=== PATIENT | male | born 1930 | race Caucasian/White ===

== ENCOUNTER → 2016-07-20 | Outpatient (CLI) | payer BC ==
[~2016-07-20] MED LIST: BTP80 PO; CHOL200027 PO; CLB/200 PO; CRS/10 PO; ERGO500037 PO; METO-217 PO; METO25TA3 PO; MULT-506 PO; PANT1TAB48 PO; PANT40TA PO; ROSU5TAB PO; SULF800T23 PO; TAMS0.4C38 PO; TPRSR25 PO; WARF3TAB6 PO; WARF7.5T4 PO
[2016-07-20 08:17] LABS: HEMATOCRIT 41.7 % (42-52); MEAN CELL VOLUME 87.8 fL (80-100); MEAN CORPUSCULAR HEMOGLOBIN 29.3 pg (25-34); MEAN CORPUSCULAR HGB CONC 33.3 g/dl (32-36); MEAN PLATELET VOLUME 11.1 fL (7.4-10.4); PLATELET COUNT 133 K/uL (130-400); RED BLOOD COUNT 4.75 M/uL (4.7-6.1); WHITE BLOOD COUNT 6.43 K/uL (4.8-10.8)
[2016-07-20 08:31] LABS: BLOOD UREA NITROGEN 15 mg/dl (7-18); BUN/CREATININE RATIO 11.5 (10-20); CARBON DIOXIDE 25 mmol/L (21-32); CHLORIDE 116 mmol/L (98-107); GLUCOSE 102 mg/dl (70-99); PHOSPHORUS 2.7 mg/dl (2.5-4.9); POTASSIUM 4.5 mmol/L (3.5-5.1); SODIUM 146 mmol/L (136-145)
[2016-07-20 08:49] LABS: CALCIUM 8.7 mg/dl (8.5-10.1)
== END ==
LOC: C.LABFOXMH 07:55
PROVIDERS: ATTEND Internal Medicine
DX: N18.3 Chronic kidney disease, stage 3 (moderate) (principal)

== ENCOUNTER 2016-10-24 10:45 | Emergency (ER) | payer BC ==
[~2016-10-24] VITALS: Ht 182.9 cm; Wt 103.0 kg
[~2016-10-24 10:45] MED LIST changes: -BTP80 PO; -CHOL200027 PO; -CLB/200 PO; -ERGO500037 PO; -METO25TA3 PO; -MULT-506 PO; -PANT1TAB48 PO; -ROSU5TAB PO; -TAMS0.4C38 PO; -TPRSR25 PO; -WARF7.5T4 PO
[2016-10-24 10:55] VITALS: TEMP 36.7; Ht 182.9 cm; Wt 103.0 kg
[2016-10-24] MEDS ORDERED: ERGO500037 PO (11:03)
[2016-10-24] MEDS ORDERED: CLB/200 PO (11:03)
[2016-10-24] MEDS ORDERED: ROSU5TAB PO (11:03)
[2016-10-24] MEDS ORDERED: TAMS0.4C38 PO (11:03)
[2016-10-24] MEDS ORDERED: METO25TA3 PO (11:03)
[2016-10-24] MEDS ORDERED: WARF7.5T4 PO (11:03)
[2016-10-24] MEDS ORDERED: CHOL200027 PO (11:03)
[2016-10-24] MEDS ORDERED: PANT1TAB48 PO (11:03)
[2016-10-24 11:06] VITALS: O2SAT 94
[2016-10-24 11:33] LABS: BASO % 0.4 %; BASO ABS # 0.03 K/uL (0-0.2); COMPLETE YES; EOS % 1.2 %; HEMATOCRIT 45.1 % (42-52); IG% 0.1 %; LYMPH ABS # 1.27 K/uL (1.2-3.4); MEAN CORPUSCULAR HGB CONC 33.7 g/dl (32-36); MEAN PLATELET VOLUME 11.7 fL (7.4-10.4); MONO % 8.2 %; NEUT % 71.1 %; PLATELET COUNT 141 K/uL (130-400); RED BLOOD COUNT 5.07 M/uL (4.7-6.1); WHITE BLOOD COUNT 6.69 K/uL (4.8-10.8)
--- NOTE | 2016-10-24 11:37 | DIAGNOSTIC IMAGING REPORT ---
CHEST ONE VIEW PORTABLE HISTORY: 85 years Male acute Fever/Sepsis COMPARISON: None available. TECHNIQUE: Portable upright AP view of the chest FINDINGS: Cardiac silhouette is mildly enlarged. There is no pneumothorax, pleural effusion, focal airspace consolidation or overt pulmonary edema. There is mild convex right curvature of the midthoracic spine. The bones are grossly intact. IMPRESSION: No acute cardiopulmonary process. The above report was generated using voice recognition software. It may contain grammatical, syntax or spelling errors. Electronically signed by: Roland Humphrey M.D. 10/24/2016 11:36 AM Dictated Date/Time: 10/24/2016 11:35 AM
[2016-10-24 11:50] LABS: PARTIAL THROMBOPLASTIN RATIO 1.4; PROTHROMBIN TIME (PATIENT) 22.2 SECONDS (9.0-12.0)
[2016-10-24 11:52] LABS: ALT/SGPT 22 U/L (12-78); BLOOD UREA NITROGEN 20 mg/dl (7-18); CALCIUM 9.1 mg/dl (8.5-10.1); CARBON DIOXIDE 25 mmol/L (21-32); CHLORIDE 113 mmol/L (98-107); GLUCOSE 149 mg/dl (70-99); POTASSIUM 4.3 mmol/L (3.5-5.1); SODIUM 144 mmol/L (136-145)
[2016-10-24 12:02] LABS: ALKALINE PHOSPHATASE 57 U/L (45-117); AST/SGOT 17 U/L (15-37); CKMB/CK RATIO 2.1 (0-3.0)
--- NOTE | 2016-10-24 12:11 | EMERGENCY ROOM VISIT NOTE ---
History Report prepared by Iqra: Jaron Tariq Under the Supervision of: Dr. Ziggy García D.O. First contact with patient: 11:07 Chief Complaint: IRREGULAR HEARTBEAT Stated Complaint: TACHYCARDIA Nursing Triage Summary: Pt brought in via ambulance ALS from [facility]. Pt was attending a seminar this morning and felt his heart racing. Pt has a history of AFib. Pt stated that he felt SOB, pain radiating to left neck and down his left arm to his left wrist. Pt went to [facility] nurse. An EKG was obtained showing the pt in AFib with a rate in the 120's. When EMS arrived and placed a monitor on the pt their 12 lead showed the same. Pt reports that he is usually able to break his AFib with a vagal manuver. Pts heart rate is now down into the 70's. His pain has subsided and he is no longer SOB. History of Present Illness The patient is a 85 year old male who presents to the Emergency Room with complaints of resolved heart palpitations beginning 2 hours ago. He is a resident at [facility]. He began experiencing his symptoms after breakfast this morning during a seminar. The patient has a history of atrial fibrillation and is on Coumadin as well as Metoprolol. He states that his symptoms resolved shortly after arriving to the ED. He states that he can usually convert his irregular heart rhythm to a normal rhythm after a few minutes. The patient also complains of upper left chest "discomfort" with his palpitations. He notes that he was doing some physical labor yesterday. He states that he has been experiencing similar episodes of palpitations more recently than usual in the past week. The patient notes that he recently began taking vitamin D pills. Source of History: patient Onset: 2 hours ago Symptom Intensity: currently none Quality: other (heart palpitations) Timing: resolved Note: The patient also complains of upper left chest "discomfort" with his palpitations. Review of Systems See HPI for pertinent positives & negatives. A total of 10 systems reviewed and were otherwise negative. Past Medical & Surgical Medical Problems: (1) Atrial fibrillation Family History No pertinent family history stated. Social History Smoking Status: Former Smoker Marital Status: Occupation Status: retired Current/Historical Medications Scheduled Celecoxib (CeleBREX), 200 MG PO DAILY Cholecalciferol (Vitamin D-3), 2,000 UNITS PO DAILY Ergocalciferol (Vitamin D 12705 Unit), 50,000 UNIT PO WK Metoprolol Succinate (Toprol Xl), 12.5 MG PO DAILY Pantoprazole (Protonix), 40 MG PO DAILY Rosuvastatin Calcium (Crestor), 5 MG PO DAILY Tamsulosin Hcl (Flomax), 0.4 MG PO DAILY Warfarin Sod (Jantoven), 7.5 MG PO DAILY Allergies Coded Allergies: Penicillins (Verified Allergy, Unknown, 03/26/14) Levofloxacin (Verified Adverse Reaction, Intermediate, Tachycardia, ) Physical Exam Vital Signs Date Time Temp Pulse Resp B/P (MAP) Pulse Ox O2 Delivery O2 Flow Rate FiO2 10/24/16 11:06 94 Room Air 10/24/16 10:58 70 10/24/16 10:58 94 Room Air 10/24/16 10:55 36.7 66 20 143/88 94 Room Air Physical Exam CONSTITUTIONAL/VITAL SIGNS: Reviewed / noted above. GENERAL: Non-toxic in appearance. INTEGUMENTARY: Warm, dry, and Herman. HEAD: Normocephalic. EYES: without scleral icterus or trauma. ENT/OROPHARYNX: clear and moist. LYMPHADENOPATHY/NECK: Is supple without lymphadenopathy or meningismus. RESPIRATORY: Lungs clear and equal. CARDIOVASCULAR: Regular rate and rhythm. GI/ABDOMEN: Soft and nontender. No organomegaly or pulsatile mass. No rebound or guarding. Normal bowel sounds. EXTREMITIES: Warm and well perfused. BACK: No CVA tenderness. NEUROLOGICAL: Intact without focal deficits. PSYCHIATRIC: normal affect. MUSCULOSKELETAL: Normally developed with good muscle tone. Medical Decision & Procedures ER Provider Diagnostic Interpretation: X ray results and stated below per my interpretation and radiology interpretation. CHEST ONE VIEW PORTABLE FINDINGS: Cardiac silhouette is mildly enlarged. There is no pneumothorax, pleural effusion, focal airspace consolidation or overt pulmonary edema. There is mild convex right curvature of the midthoracic spine. The bones are grossly intact. IMPRESSION: No acute cardiopulmonary process. The above report was generated using voice recognition software. It may contain grammatical, syntax or spelling errors. Electronically signed by: Roland Humphrey M.D. Laboratory Results 10/24/16 10:55 Red Blood Count 5.07, Mean Corpuscular Volume 89.0, Mean Corpuscular Hemoglobin 30.0, Mean Corpuscular Hemoglobin Concent 33.7, Mean Platelet Volume 11.7, Neutrophils (%) (Auto) 71.1, Lymphocytes (%) (Auto) 19.0, Monocytes (%) (Auto) 8.2, Eosinophils (%) (Auto) 1.2, Basophils (%) (Auto) 0.4, Neutrophils # (Auto) 4.75, Lymphocytes # (Auto) 1.27, Monocytes # (Auto) 0.55, Eosinophils # (Auto) 0.08, Basophils # (Auto) 0.03 10/24/16 10:55 Test 10/24/16 10:55 White Blood Count 6.69 K/uL (4.8-10.8) Red Blood Count 5.07 M/uL (4.7-6.1) Hemoglobin 15.2 g/dL (14.0-18.0) Hematocrit 45.1 % (42-52) Mean Corpuscular Volume 89.0 fL (80-100) Mean Corpuscular Hemoglobin 30.0 pg (25-34) Mean Corpuscular Hemoglobin Concent 33.7 g/dl (32-36) Platelet Count 141 K/uL (130-400) Mean Platelet Volume 11.7 fL (7.4-10.4) Neutrophils (%) (Auto) 71.1 % Lymphocytes (%) (Auto) 19.0 % Monocytes (%) (Auto) 8.2 % Eosinophils (%) (Auto) 1.2 % Basophils (%) (Auto) 0.4 % Neutrophils # (Auto) 4.75 K/uL (1.4-6.5) Lymphocytes # (Auto) 1.27 K/uL (1.2-3.4) Monocytes # (Auto) 0.55 K/uL (0.11-0.59) Eosinophils # (Auto) 0.08 K/uL (0-0.5) Basophils # (Auto) 0.03 K/uL (0-0.2) RDW Standard Deviation 44.3 fL (36.4-46.3) RDW Coefficient of Variation 13.7 % (11.5-14.5) Immature Granulocyte % (Auto) 0.1 % Immature Granulocyte # (Auto) 0.01 K/uL (0.00-0.02) Prothrombin Time 22.2 SECONDS (9.0-12.0) Prothromb Time International Ratio 2.0 (0.9-1.1) Activated Partial Thromboplast Time 37.2 SECONDS (21.0-31.0) Partial Thromboplastin Ratio 1.4 Anion Gap 6.0 mmol/L (3-11) Est Creatinine Clear Calc Drug Dose 44.7 ml/min Estimated GFR () 48.5 Estimated GFR (Non- 41.9 BUN/Creatinine Ratio 13.0 (10-20) Calcium Level 9.1 mg/dl (8.5-10.1) Total Bilirubin 0.5 mg/dl (0.2-1) Direct Bilirubin 0.1 mg/dl (0-0.2) Aspartate Amino Transf (AST/SGOT) 17 U/L (15-37) Alanine Aminotransferase (ALT/SGPT) 22 U/L (12-78) Alkaline Phosphatase 57 U/L (45-117) Total Creatine Kinase 85 U/L (39-308) Creatine Kinase MB 1.8 ng/ml (0.5-3.6) Creatine Kinase MB Ratio 2.1 (0-3.0) Troponin I < 0.015 ng/ml (0-0.045) Total Protein 7.0 gm/dl (6.4-8.2) Albumin 3.6 gm/dl (3.4-5.0) Thyroid Stimulating Hormone (TSH) 2.800 uIu/ml (0.300-4.500) Laboratory results as stated above per my review. ECG Indication: palpitations Rate (beats per minute): 68 Rhythm: sinus rhythm Findings: 1st degree AV block, no acute ischemic change, no ectopy ED Course 1114: Previous medical records were reviewed. The patient was evaluated in room C3. A complete history and physical examination was performed. 1206: On reevaluation, the patient is resting comfortably. I discussed the results and findings with the patient. He verbalized agreement of the treatment plan. He was discharged home. Medical Decision Differential diagnosis: Etiologies such as premature contractions, electrolyte abnormality, cardiac dysrhythmia, thyroid dysfunction, pulmonary embolism, infection, gastrointestinal, as well as others were entertained. This is an 85-year-old male who presents to the ED with a chief complaint of prolonged paroxysmal A. fib. The patient states that he does have a history of paroxysmal A. fib. He states that usually he is able to get himself out of it with a vagal-type maneuver and less than 10 minutes. Today's episode lasted for about an hour and a half. He went to [facility] nurse who did an EKG that revealed atrial fibrillation at a heart rate of 120. The patient's only symptoms was an unusual feeling in the left upper chest. By the time the patient arrives here, his symptoms have resolved. His EKG shows a normal sinus rhythm at a rate of 70. He has a first-degree AV block. A chest x-ray did not show acute disease. CBC and metabolic panel was unremarkable. Troponin is negative. INR is 2. The patient was told results. He is felt to be stable for discharge. Medication Reconcilliation Current Medication List: was personally reviewed by me Blood Pressure Screening Patient's blood pressure: Elevated blood pressure Blood pressure disposition: Referred to PCP Impression Primary Impression: Paroxysmal atrial fibrillation with rapid ventricular response Scribe Attestation The scribe's documentation has been prepared under my direction and personally reviewed by me in its entirety. I confirm that the note above accurately reflects all work, treatment, procedures, and medical decision making performed by me. Departure Information Dispostion Home / Self-Care Referrals Evin Melton (PCP) Patient Instructions My [facility] Additional Instructions Follow-up with your doctor for further care and evaluation in 1-2 days. Return to the emergency department for worsening or new symptoms or any concerns. You have been examined and treated today on an emergency basis only. This is not a substitute for, or an effort to provide, complete comprehensive medical care. It is impossible to recognize and treat all injuries or illnesses in a single emergency department visit. It is therefore important that you follow up closely with your doctor. Call as soon as possible for an appointment.
[2016-10-24 12:50] VITALS: BP 116/76; PULSE 55; O2SAT 94
[2016-11-14] MEDS ORDERED: BTP80 PO (14:03)
== END 2016-10-24 13:12 | disposition home or self-care (01) ==
LOC: EDBD 10:45 → C.EDC 10:46
DX: I48.0 Paroxysmal atrial fibrillation (principal); Z79.01 Long term (current) use of anticoagulants; Z87.891 Personal history of nicotine dependence; Z79.899 Other long term (current) drug therapy

== ENCOUNTER 2016-11-01 20:13 | Emergency (ER) | payer BC ==
[~2016-11-01] VITALS: Ht 188 cm; Wt 105.2 kg
[~2016-11-01 20:13] MED LIST changes: +CHOL200027 PO; +CLB/200 PO; -CRS/10 PO; +ERGO500037 PO; -METO-217 PO; +METO25TA3 PO; +PANT1TAB48 PO; -PANT40TA PO; +ROSU5TAB PO; -SULF800T23 PO; +TAMS0.4C38 PO; -WARF3TAB6 PO; +WARF7.5T4 PO
[2016-11-01 20:22] VITALS: TEMP 36.4; Ht 188 cm; Wt 105.2 kg
[2016-11-01 20:44] VITALS: O2SAT 96
[2016-11-01] MEDS ORDERED: DILTIAZEM BOLUS / DRIP IV STA (20:46)
[2016-11-01] MEDS ORDERED: DILTIAZEM HCL 5 MG/ML 5 ML VIAL IV STA (20:46)
[2016-11-01 20:48] LABS: BASO % 0.5 %; BASO ABS # 0.04 K/uL (0-0.2); COMPLETE YES; EOS % 1.3 %; HEMATOCRIT 47.4 % (42-52); IG% 0.1 %; LYMPH % 20.7 %; LYMPH ABS # 1.73 K/uL (1.2-3.4); MEAN CELL VOLUME 89.1 fL (80-100); MEAN CORPUSCULAR HEMOGLOBIN 30.3 pg (25-34); MEAN PLATELET VOLUME 11.2 fL (7.4-10.4); MONO % 7.3 %; NEUT % 70.1 %; PLATELET COUNT 159 K/uL (130-400); RED BLOOD COUNT 5.32 M/uL (4.7-6.1); WHITE BLOOD COUNT 8.37 K/uL (4.8-10.8)
[2016-11-01 20:58] LABS: INR 2.2 (0.9-1.1); PROTHROMBIN TIME (PATIENT) 24.2 SECONDS (9.0-12.0)
[2016-11-01] MEDS ORDERED: DILTIAZEM HCL INJ 125 MG in DEXTROSE 5% 100ML IV PRN (21:00)
[2016-11-01 21:09] LABS: BLOOD UREA NITROGEN 18 mg/dl (7-18); CALCIUM 9.1 mg/dl (8.5-10.1); CARBON DIOXIDE 25 mmol/L (21-32); CHLORIDE 109 mmol/L (98-107); GLUCOSE 139 mg/dl (70-99); POTASSIUM 4.3 mmol/L (3.5-5.1); SODIUM 143 mmol/L (136-145)
[2016-11-01] MEDS ORDERED: SODIUM CHLORIDE 0.9% 500ML 500 ML IV STA (21:09)
[2016-11-01] MEDS ORDERED: WARF7.5T4 PO (21:30)
[2016-11-01] MEDS ORDERED: MULT-506 PO (21:32)
--- NOTE | 2016-11-01 21:52 | EMERGENCY ROOM VISIT NOTE ---
History Report prepared by Iqra: Mateusz Holcomb Under the Supervision of: Dr. Ziggy Becerril M.D. First contact with patient: 20:37 Chief Complaint: CARDIAC ASSESSMENT Stated Complaint: RAPID HEART BEAT FOR 2.5HOURS History of Present Illness The patient is a 85 year old male who presents to the Emergency Room with complaints of heart palpitations starting about 3 hours ago. He describes it as a rapid heartbeat. He also complains of some mild abdominal discomfort. He has a history of similar symptoms occurring for the past 15 years with A-Fib but his symptoms have worsened over the past 6 weeks. He no longer has relief with a vasovagal maneuver. He took Metoprolol at home prior to arrival. He is on Coumadin. He denies any chest pain, shortness of breath, or any other complaints. Source of History: patient Onset: about 3 hours ago Position: chest Quality: other (heart palpitations) Timing: other (persistent) Modifying Factors (Relieving): other (vasovagal maneuver without relief) Associated Symptoms: + abdominal pain, No chest pain, No SOB Review of Systems See HPI for pertinent positives & negatives. A total of 10 systems reviewed and were otherwise negative. Past Medical & Surgical Medical Problems: (1) Atrial fibrillation Family History Patient reports no known family medical history. Social History Smoking Status: Never Smoker Marital Status: Housing Status: lives with family Occupation Status: retired Current/Historical Medications Scheduled Celecoxib (CeleBREX), 200 MG PO DAILY Cholecalciferol (Vitamin D-3), 2,000 UNITS PO DAILY Metoprolol Succinate (Toprol Xl), 12.5 MG PO DAILY Multivitamin (Multivitamin), 1 TAB PO DAILY Pantoprazole (Protonix), 40 MG PO DAILY Rosuvastatin Calcium (Crestor), 5 MG PO DAILY Tamsulosin Hcl (Flomax), 0.4 MG PO DAILY Warfarin Sod (Jantoven), 7.5 MG PO 3XWK Warfarin Sod (Jantoven), 3.75 MG PO 4XWK Allergies Coded Allergies: Penicillins (Verified Allergy, Unknown, 11/01/16) Levofloxacin (Verified Adverse Reaction, Intermediate, Tachycardia, ) Physical Exam Vital Signs Date Time Temp Pulse Resp B/P (MAP) Pulse Ox O2 Delivery O2 Flow Rate FiO2 11/01/16 23:01 49 18 95/63 95 11/01/16 22:39 46 11/01/16 22:00 55 14 99/65 96 Nasal Cannula 2.0 11/01/16 21:56 90/64 11/01/16 21:51 106/62 11/01/16 21:46 102/65 11/01/16 21:41 91/62 11/01/16 21:36 97/65 11/01/16 21:31 90/58 11/01/16 21:30 57 19 94 11/01/16 21:21 55 16 87/56 92 Room Air 11/01/16 21:16 120 20 89/68 92 Room Air 11/01/16 20:49 125 11/01/16 20:45 96 Room Air 11/01/16 20:44 96 Room Air 11/01/16 20:22 36.4 143 18 88/60 96 Room Air Physical Exam GENERAL: Patient is a healthy-appearing well-nourished HEAD: Normocephalic atraumatic EYES: Ocular movements intact pupils equal and react to light OROPHARYNX mucous membranes are moist no exudates present no erythema or edema present NECK: Supple no nuchal rigidity CHEST: Good equal expansion LUNGS: Clear and equal to auscultation CARDIAC: Normal S1 and S2 ABDOMEN: Soft nontender no guarding BACK: No CVA tenderness EXTREMITIES: No pain upon palpation normal muscle strength in all groups no clubbing cyanosis or edema NEURO: Patient is following commands and answering questions appropriately. Alert and oriented x3 Cranial Nerves 2-12 grossly intact Medical Decision & Procedures ER Provider Diagnostic Interpretation: X-ray results as stated below per interpretation by me and the radiologist: CHEST ONE VIEW PORTABLE HISTORY: 85 years-old Male CHEST PAIN COMPARISON: 10/24/2016 TECHNIQUE: Portable upright AP view of the chest FINDINGS: Cardiac silhouette is again mildly enlarged with associated prominence of the pulmonary vascularity. There is atherosclerosis of the aorta. There is no pneumothorax or pleural effusion. Linear subsegmental left basilar opacity is noted suggesting atelectasis. The bones appear intact. IMPRESSION: Minimal left basilar atelectasis without acute cardiopulmonary process. The above report was generated using voice recognition software. It may contain grammatical, syntax or spelling errors. Electronically signed by: Roland Humphrey M.D. 11/01/2016 9:58 PM Dictated Date/Time: 11/01/2016 9:57 PM Laboratory Results 11/01/16 20:41 Red Blood Count 5.32, Mean Corpuscular Volume 89.1, Mean Corpuscular Hemoglobin 30.3, Mean Corpuscular Hemoglobin Concent 34.0, Mean Platelet Volume 11.2, Neutrophils (%) (Auto) 70.1, Lymphocytes (%) (Auto) 20.7, Monocytes (%) (Auto) 7.3, Eosinophils (%) (Auto) 1.3, Basophils (%) (Auto) 0.5, Neutrophils # (Auto) 5.87, Lymphocytes # (Auto) 1.73, Monocytes # (Auto) 0.61, Eosinophils # (Auto) 0.11, Basophils # (Auto) 0.04 11/01/16 20:41 Test 11/01/16 20:41 White Blood Count 8.37 K/uL (4.8-10.8) Red Blood Count 5.32 M/uL (4.7-6.1) Hemoglobin 16.1 g/dL (14.0-18.0) Hematocrit 47.4 % (42-52) Mean Corpuscular Volume 89.1 fL (80-100) Mean Corpuscular Hemoglobin 30.3 pg (25-34) Mean Corpuscular Hemoglobin Concent 34.0 g/dl (32-36) Platelet Count 159 K/uL (130-400) Mean Platelet Volume 11.2 fL (7.4-10.4) Neutrophils (%) (Auto) 70.1 % Lymphocytes (%) (Auto) 20.7 % Monocytes (%) (Auto) 7.3 % Eosinophils (%) (Auto) 1.3 % Basophils (%) (Auto) 0.5 % Neutrophils # (Auto) 5.87 K/uL (1.4-6.5) Lymphocytes # (Auto) 1.73 K/uL (1.2-3.4) Monocytes # (Auto) 0.61 K/uL (0.11-0.59) Eosinophils # (Auto) 0.11 K/uL (0-0.5) Basophils # (Auto) 0.04 K/uL (0-0.2) RDW Standard Deviation 44.5 fL (36.4-46.3) RDW Coefficient of Variation 13.6 % (11.5-14.5) Immature Granulocyte % (Auto) 0.1 % Immature Granulocyte # (Auto) 0.01 K/uL (0.00-0.02) Prothrombin Time 24.2 SECONDS (9.0-12.0) Prothromb Time International Ratio 2.2 (0.9-1.1) Anion Gap 9.0 mmol/L (3-11) Est Creatinine Clear Calc Drug Dose 46.6 ml/min Estimated GFR () 48.5 Estimated GFR (Non- 41.9 BUN/Creatinine Ratio 11.8 (10-20) Calcium Level 9.1 mg/dl (8.5-10.1) Total Bilirubin 0.4 mg/dl (0.2-1) Direct Bilirubin 0.1 mg/dl (0-0.2) Aspartate Amino Transf (AST/SGOT) 19 U/L (15-37) Alanine Aminotransferase (ALT/SGPT) 24 U/L (12-78) Alkaline Phosphatase 59 U/L (45-117) Total Creatine Kinase 64 U/L (39-308) Creatine Kinase MB 1.4 ng/ml (0.5-3.6) Creatine Kinase MB Ratio 2.2 (0-3.0) Troponin I < 0.015 ng/ml (0-0.045) Total Protein 7.3 gm/dl (6.4-8.2) Albumin 3.8 gm/dl (3.4-5.0) Lipase 216 U/L (73-393) Labs reviewed by ED physician. Medications Administered Medications (Trade) Dose Ordered Sig/Catina Route Start Time Stop Time Status Last Admin Dose Admin Diltiazem HCl (Cardizem Inj) 25 mg NOW STAT IV 11/01/16 20:46 11/01/16 20:47 DC 11/01/16 21:12 25 MG Sodium Chloride 500 ml @ 999 mls/hr Q31M STAT IV 11/01/16 21:09 11/01/16 21:39 DC 11/01/16 21:16 999 MLS/HR ECG Indication: chest pain Rate (beats per minute): 127 Rhythm: other (accelerated junctional rhythm) Findings: no acute ischemic change, no ectopy Change: Repeat EKG showed junctional rhythm, 53 beats per minute, no ectopy, no acute ischemic changes. ED Course 2036: Past medical records reviewed. The patient was evaluated in room B11B. A complete history and physical examination was performed. 2045: Diltiazem HCl 1 ea IV, Diltiazem HCl 25 mg IV 2108: Sodium Chloride 500 ml @ 999 mls/hr IV 3: Upon reexamination the patient is resting comfortably. I discussed results and treatment plan with the patient. He verbalizes agreement and understanding. The patient is ready for discharge. Medical Decision Differential diagnosis: Etiologies such as cardiac ischemia, aortic dissection, pulmonary embolism, pneumonia, pneumothorax, musculoskeletal, infections, pericarditis, myocarditis , esophageal rupture, gastrointestinal, as well as others were entertained. This is an 85-year-old male who presents emergency department complaining of atrial fibrillation with a rapid response. The patient's Coumadin level is therapeutic. For this reason the patient was given Cardizem bolus. This resulted in conversion. The patient was ambulated in the emergency department and did not exhibit any evidence of dizziness. 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 Patient and are in agreement with the treatment plan. Medication Reconcilliation Current Medication List: was personally reviewed by me Blood Pressure Screening Patient's blood pressure: Low blood pressure Impression Primary Impression: Atrial fibrillation with rapid ventricular response Scribe Attestation The scribe's documentation has been prepared under my direction and personally reviewed by me in its entirety. I confirm that the note above accurately reflects all work, treatment, procedures, and medical decision making performed by me. Departure Information Dispostion Home / Self-Care Referrals Jeremiah Kurtz, Manjit Chu M.D. Forms IMPORTANT VISIT INFORMATION Patient Instructions Atrial Fibrillation Dc, My [facility] Additional Instructions Follow up with DR Kurtz's office You have been examined and treated today on an emergency basis only. This is not a substitute for, or an effort to provide, complete comprehensive medical care. It is impossible to recognize and treat all injuries or illnesses in a single emergency department visit. It is therefore important that you follow up closely with Dr Moscoso. Call as soon as possible for an appointment. Thank you for your time and consideration. I look forward to speaking with you again soon. Please don't hesitate to call us if you have any questions.
[2016-11-01 21:55] LABS: ALKALINE PHOSPHATASE 59 U/L (45-117); ALT/SGPT 24 U/L (12-78); AST/SGOT 19 U/L (15-37)
--- NOTE | 2016-11-01 21:59 | DIAGNOSTIC IMAGING REPORT ---
CHEST ONE VIEW PORTABLE HISTORY: 85 years-old Male CHEST PAIN COMPARISON: 10/24/2016 TECHNIQUE: Portable upright AP view of the chest FINDINGS: Cardiac silhouette is again mildly enlarged with associated prominence of the pulmonary vascularity. There is atherosclerosis of the aorta. There is no pneumothorax or pleural effusion. Linear subsegmental left basilar opacity is noted suggesting atelectasis. The bones appear intact. IMPRESSION: Minimal left basilar atelectasis without acute cardiopulmonary process. The above report was generated using voice recognition software. It may contain grammatical, syntax or spelling errors. Electronically signed by: Roland Humphrey M.D. 11/01/2016 9:58 PM Dictated Date/Time: 11/01/2016 9:57 PM
[2016-11-01 22:02] LABS: BUN/CREATININE RATIO 11.8 (10-20); CKMB/CK RATIO 2.2 (0-3.0)
[2016-11-01 23:01] VITALS: BP 95/63; PULSE 49; O2SAT 95
[2016-11-14] MEDS ORDERED: BTP80 PO (14:03)
== END 2016-11-01 23:02 | disposition home or self-care (01) ==
LOC: C.EDB 20:16
DX: I48.91 Unspecified atrial fibrillation (principal); Z79.01 Long term (current) use of anticoagulants; Z79.899 Other long term (current) drug therapy; Z88.0 Allergy status to penicillin; Z88.8 Allergy status to other drugs, medicaments and biological substances

== ENCOUNTER → 2016-11-12 | Outpatient (CLI) | payer BC ==
[~2016-11-12] MED LIST changes: +BTP80 PO; -ERGO500037 PO; +MULT-506 PO
[2016-11-12 08:52] LABS: HEMATOCRIT 43.5 % (42-52); MEAN CELL VOLUME 90.6 fL (80-100); MEAN CORPUSCULAR HEMOGLOBIN 30.6 pg (25-34); MEAN CORPUSCULAR HGB CONC 33.8 g/dl (32-36); MEAN PLATELET VOLUME 12.2 fL (7.4-10.4); PLATELET COUNT 137 K/uL (130-400); WHITE BLOOD COUNT 6.89 K/uL (4.8-10.8)
[2016-11-12 09:00] LABS: BLOOD UREA NITROGEN 22 mg/dl (7-18); BUN/CREATININE RATIO 14.7 (10-20); CALCIUM 8.6 mg/dl (8.5-10.1); CARBON DIOXIDE 28 mmol/L (21-32); CHLORIDE 111 mmol/L (98-107); GLUCOSE 110 mg/dl (70-99); POTASSIUM 4.3 mmol/L (3.5-5.1); SODIUM 145 mmol/L (136-145)
[2016-11-12 09:01] LABS: PHOSPHORUS 2.8 mg/dl (2.5-4.9)
== END ==
LOC: C.LABFOXDH 08:19
PROVIDERS: ATTEND Internal Medicine
DX: N18.3 Chronic kidney disease, stage 3 (moderate) (principal)

== ENCOUNTER 2016-11-13 08:22 | Inpatient (IN) | payer BC, OTHER ==
[~2016-11-13] VITALS: Ht 188 cm; Wt 100.9 kg
[2016-11-13] MEDS: CEFAZOLIN 2000 MG/60 ML D5W IV SCH ×2 (06:00→14:12)
[~2016-11-13 08:22] MED LIST changes: -BTP80 PO; +LACTATED RINGER'S 1000ML 1,000 ML IV SCH
[2016-11-13] MEDS ORDERED: FENTANYL CITRATE INJ 50 MCG/1 ML 2 ML VIAL ONE (09:10)
[2016-11-13] MEDS ORDERED: MIDAZOLAM HCL 5 MG/ML 1 ML VIAL ONE (09:10)
[2016-11-13] MEDS ORDERED: LIDOCAINE HCL 1% 20 ML VIAL ONE (09:11)
[2016-11-13] MEDS ORDERED: BACITRACIN 50000 UNIT VIAL ONE (09:11)
--- NOTE | 2016-11-13 09:26 | History & Physical Bridge Note ---
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
--- NOTE | 2016-11-13 09:27 | Procedure Note ---
Pre-Mod Sedation Assessment General Date of Moderate Sedation: Nov 13, 2016. Review Cardiovascular: regular rate, rhythm, no murmur Abdomen: soft Lungs: lungs clear Airway Class: II Pre-Sedation Airway Assessment Able to Visualize Vocal Cords: No Short Thick Neck: No Hx of Sleep Apnea: No Smoking Status: Never Smoker Mallampati Classification: Class II ASA Classification: Class II Procedure Planning Contraindications-for Mod Sed: None Yes Notes The planned sedation has been discussed with the patient and consent obtained. I have identified the patient, determined the appropriateness of sedation and have assessed the patient immediately prior to the procedure. All medicine(s) and interventions are by my order.
[2016-11-13 09:41] VITALS: BP 157/77; PULSE 46; TEMP 36.8; O2SAT 97; BMI 29.0
[2016-11-13 09:50] LABS: INR 1.4 (0.9-1.1); PROTHROMBIN TIME (PATIENT) 15.1 SECONDS (9.0-12.0)
[2016-11-13] MEDS ORDERED: CEFAZOLIN SOD 1000MG/55 ML D5W IV ONE (10:04)
[2016-11-13] MEDS ORDERED: KEFZOL SPECIAL PROCEDURE STOCK 1 GM ADDVIAL IV ONE (10:16)
--- NOTE | 2016-11-13 11:50 | Procedure Note ---
Post-Mod Sedation Assessment General Date of Moderate Sedation Nov 13, 2016. Vital Signs: Vital Signs Past 12 Hours Date Time Temp Pulse Resp B/P (MAP) Pulse Ox O2 Delivery O2 Flow Rate FiO2 11/13/16 11:40 80 16 135/88 (104) 96 Nasal Cannula 3 11/13/16 09:41 36.8 46 20 157/77 (103) 97 Room Air Review - Discharge Criteria Vital Signs Stable: Yes Alert/Oriented/Conversant: Yes Returned to Baseline Mental St: Yes Nausea Absent/Minimal: Yes Pain/Discomfort/Absent/Minimal: Yes Normal/Baseline Respirations: Yes Active Bleeding?: No Pt Received D/C Instructions: N/A Prescriptions Given: None Specific Proced. D/C Criteria Distal Pulses Present (Cardiac: N/A Groin site assessed-Card Cath: N/A Voided Prior To Discharge: N/A Discharged Patients Adult Escort/Transportation: N/A
--- NOTE | 2016-11-13 11:51 | [facility] Post Operative Brief Note ---
Immediate Operative Summary Operative Date Nov 13, 2016. Pre-Operative Diagnosis TBS, PAT Post-Operative Diagnosis SAME Procedure(s) Performed DUAL CHAMBER RATE RESPONSIVE PPM UNDER FLUROSCOPIC GUIDANCE WITH PERIPHERAL VENOGRAM Surgeon LESVIA MURRAY Ic Designer Custom Surgeon(s) NONE Estimated Blood Loss <20CC Findings SEE OFFICIAL REPORT Fluids (cc crystalloids) 400CC Specimens NONE Drains NONE Anesthesia 3MG VERSED Complication(s) None Disposition PCU
[2016-11-13] MEDS ORDERED: ACETAMINOPHEN/CODEINE 300/30MG TAB PO PRN (12:00)
[2016-11-13] MEDS ORDERED: ACETAMINOPHEN 325 MG TAB PO PRN (12:00)
[2016-11-13 12:15] VITALS: BP 133/88; PULSE 54; TEMP 36.4; O2SAT 95; Ht 188 cm; Wt 100.9 kg
--- NOTE | 2016-11-13 13:38 | OPERATIVE REPORT ---
DATE OF OPERATION: 11/13/2016 PREOPERATIVE DIAGNOSIS: Tachybrady syndrome, paroxysmal atrial tachycardia. POSTOPERATIVE DIAGNOSIS: Same. PROCEDURE: Dual chamber rate responsive permanent pacemaker under fluoroscopic guidance along with peripheral venogram. SURGEON: Dr. Aleisha Mcnamara. MEASUREMENT SUPERINTENDENT: None. ANESTHESIA: Monitored conscious sedation given under my supervision, administered by Stephanie Gustafson. Start time 10:31. End time 11:40. Total of 3 mg of Versed. IV CONTRAST: 15 mL. ANTIBIOTICS: 2 grams of Ancef. IV FLUIDS: 400 mL. BLOOD LOSS: Less than 20 mL. COMPLICATIONS: None. CONDITION: Stable. URINE OUTPUT: Not applicable. SPECIMENS: None. FINDINGS: See below. DRAINS: None. INDICATIONS: This is an 86-year-old gentleman who has a past medical history for tachybrady syndrome, paroxysmal atrial tachycardia, paroxysmal atrial fibrillation, on Coumadin with a CHADS-VASc score of 2 and on a low dose metoprolol, PVCs, chronic kidney disease stage III and hyperlipidemia. The patient due to his more symptomatic tachybrady syndrome was recommended dual chamber pacemaker, followed then by sotalol initiation. CONSENT: Consent was obtained prior to the patient going into the electrophysiology lab. The patient was explained the risks, benefits and alternatives to the procedure. Risks include but not limited to sudden cardiac , cardiac arrhythmia, cerebrovascular accident, myocardial infarction, injury to the blood vessels, chamber of the heart, lungs, bleeding or infection. The patient understood these risks and agreed to go ahead with the procedure as planned. Informed consent was obtained. DESCRIPTION OF THE PROCEDURE: The patient was brought into the electrophysiology lab in a fasting state. He was connected to continuous candy polisher. A timeout was performed to ensure patient's identity and procedure correctly. The patient received prophylactic antibiotics prior to incision. He was prepped and draped over the right infraclavicular space in normal surgical standard fashion. Moderate conscious sedation was given throughout the procedure for patient's comfort level under my supervision. [place] precautions were maintained throughout the procedure. 10 mL of 1% lidocaine, bupivacaine mixture were given in the right deltopectoral groove. Incision was performed in the right deltopectoral groove. Blunt dissection was performed down to identify the cephalic vein. The cephalic vein was identified and isolated using 0 silk ties. The vein was nicked and initially a J-wire was inserted; however, there was some resistance and difficulty in getting it in. I then ended up giving 5 mL of IV contrast into the cephalic vein and it looked like maybe it was no longer patent, so then I did a peripheral venogram with 10 mL of IV contrast diluted in 10 mL of saline, followed by 20 mL flush to identify the axillary vein and this showed that the cephalic vein was still patent as it backfilled pretty much back into my access site. So I went back to the cephalic vein, I did a more medial trina and inserted a Glidewire without any resistance. An 8-Kenyan sheath was inserted over the guidewire without any resistance. The dilator was removed and a second guidewire was inserted through the 8-Kenyan sheath to allow for retained venous access. The sheath was removed, flushed and dilator reinserted over it and then the 8-Kenyan sheath was inserted over the Glidewire. The Glidewire and dilator removed. The right ventricular pacing lead was then advanced into the right ventricle and positioned into the right ventricular apex under fluoroscopic guidance. There was adequate pacing and sensing thresholds and no diaphragmatic stimulation with high output pacing. The 8-Kenyan sheath was peeled away and the lead was fixated to pectoralis muscle using 0 silk suture. A second 8-Kenyan sheath was inserted over the retained guidewire without any resistance. The guidewire and dilator were removed. The right atrial lead was advanced into the right atrium and positioned into the right atrial wall under fluoroscopic guidance. There was adequate pacing and sensing thresholds and no diaphragmatic stimulation with high output pacing. Of note, patient did go into PAT during placement of the right atrial lead. He went out of it on his own as well. There was adequate impedance and sensing thresholds with the right atrial lead and no diaphragmatic stimulation with high output pacing. The 8-Kenyan sheath was peeled away and the lead was fixated to the pectoralis muscle using 0 silk suture. An additional 10 mL of 1% lidocaine, bupivacaine mixture were given in the pectoralis fascia. Using blunt dissection over the pectoralis muscle within the pectoralis fascia, a pacemaker pocket was created. The pocket was flushed with copious amounts of bacitracin saline wash and inspected for hemostasis. The new pulse generator was connected to the leads, making sure that the pins were in appropriate position, passed the set screws and the set screws were all tightened. The pulse generator was then placed in the pocket, making sure that the leads were lying flat beneath the device. A stay stitch using 0 silk suture was used to secure the device to the pectoralis muscle. Héctor stat was placed in the pocket as patient is going to go back on Coumadin. The incision was closed in a 3-layer fashion using a 2-0 Vicryl interrupted suture, followed by a 3-0 Vicryl interrupted suture, followed by a 4-0 Monocryl running stitch and Dermabond was applied. EQUIPMENTS: 1. Pulse generator is a [employer] DMRI SureScan [id number], serial #[id number]. 2. Right atrial lead Medtronic 5076-52 cm, serial #[id number]. 3. Right ventricular lead Medtronic 5076-58 cm, serial #[id number]. INTRAOPERATIVE TESTIN. Right atrial lead: P-wave is 3.9 millivolts, impedance 718 ohms, threshold 1.9 volts at 3.4 milliamps. 2. Right ventricular lead: R-wave is 4.1 millivolts, impedance 939 ohms, threshold 0.6 volts at 0.8 milliamps. FINAL MEASUREMENTS THROUGH THE DEVICE: 1. Right atrial lead: P-wave is 1.6 millivolts, impedance 418 ohms, threshold 1.5 volts at 0.4 milliseconds. 2. Right ventricular lead: R-wave is 6.3 millivolts, impedance 627 ohms, threshold 0.75 volts at 0.4 milliseconds. FINAL PARAMETERS: MVP-R 60/130. Right atrial amplitude is 3.5 volts, pulse width 0.4 milliseconds, sensitivity 0.3 millivolts. Right ventricular amplitude 3.5 volts, pulse width 0.4 milliseconds, sensitivity 0.9 millivolts. IMPRESSION: Successful implantation of a dual chamber rate responsive permanent pacemaker under fluoroscopic guidance along with peripheral venogram secondary to tachybrady syndrome. PLAN: Monitor patient on telemetry. Chest x-ray and EKG. Start sotalol 80 mg twice daily with the first dose now and daily EKGs to monitor the QTc. He can continue back on his Coumadin and other home medicines, so we will stop his metoprolol. He is not allowed to lift the right elbow over the right shoulder for 1 month and not allowed to lift more than 10 pounds with the right arm for 2 weeks. He can shower in 2 days, let water run over the incision, do not scrub it. He will follow up in our [place] office in 7-10 days for device and wound check. I attest to the content of the Intraoperative Record and any orders documented therein. Any exception s are noted below.
[2016-11-13] MEDS: SOTALOL HCL 80 MG TAB PO SCH ×2 (14:11→21:28)
[2016-11-13] MEDS ORDERED: NURSING VERBAL MED ORDER ONE (14:15)
[2016-11-13 15:10] VITALS: BP 121/79; PULSE 75; TEMP 37; O2SAT 95
[2016-11-13] MEDS ORDERED: WARFARIN SOD 7.5 MG TAB PO ONE (16:00)
[2016-11-13 19:21] VITALS: BP 130/87; PULSE 62; TEMP 36.9; O2SAT 93
[2016-11-13 23:53] VITALS: BP 120/74; PULSE 64; TEMP 37; O2SAT 96
[2016-11-14 03:26] VITALS: BP 115/66; PULSE 66; TEMP 37.2; O2SAT 94
[2016-11-14 05:59] LABS: INR 1.2 (0.9-1.1); PROTHROMBIN TIME (PATIENT) 13.4 SECONDS (9.0-12.0)
--- NOTE | 2016-11-14 06:43 | DIAGNOSTIC IMAGING REPORT ---
CHEST 2 VIEWS ROUTINE CLINICAL HISTORY: EXACT TIME ORDERED Evaluate for pneumothorax and lead placement COMPARISON STUDY: 11/01/2016 FINDINGS: Bipolar cardiac pacemaker placed. Lead in good position. Small right apical pneumothorax. Minimal atelectasis left base. Maximum pleural separation right apex is 1.1 cm IMPRESSION: Bipolar cardiac pacemaker placed. Leads in good position. Small right apical pneumothorax with an estimated pleural separation of 1.1 cm The above report was generated using voice recognition software. It may contain grammatical, syntax or spelling errors. Electronically signed by: Loyd Wiggins M.D. 11/14/2016 6:42 AM Dictated Date/Time: 11/14/2016 6:35 AM
[2016-11-14 07:06] VITALS: BP 123/78; PULSE 64; TEMP 36.9; O2SAT 93
[2016-11-14] MEDS: SOTALOL HCL 80 MG TAB PO SCH ×2 (08:59→20:22)
[2016-11-14] MEDS: TAMSULOSIN HCL 0.4 MG CAP PO SCH (08:59)
[2016-11-14] MEDS: ROSUVASTATIN CALCIUM 10 MG TAB PO SCH (08:59)
[2016-11-14] MEDS: MULTIVITAMIN TAB PO SCH (09:00)
[2016-11-14] MEDS: PANTOprazole SOD 40 MG TAB PO SCH (09:00)
[2016-11-14 10:22] VITALS: BP 120/77; PULSE 61; TEMP 36.7; O2SAT 96
--- NOTE | 2016-11-14 14:02 | Cardiology Follow-Up ---
Subjective Subjective Date of Service: Nov 14, 2016. Pt evaluation today including: conversation w/ patient, physical exam, chart review, lab review, review of studies, review of inpatient medication list Pain: minimal at incision site Voiding: no voiding problems Problem List Medical Problems: (1) Atrial fibrillation with rapid ventricular response Status: Acute (2) Paroxysmal atrial fibrillation with rapid ventricular response Status: Acute Review of Systems Constitutional: No fever, No fatigue Respiratory: No shortness of breath, No dyspnea on exertion Cardiac: + palpitations, No chest pain, No edema Abdomen: No nausea, No vomiting, No diarrhea Endo: No fatigue Objective Vital Signs Last Vital Signs Documentation Date Time Temp Pulse Resp B/P (MAP) Pulse Ox O2 Delivery O2 Flow Rate FiO2 11/14/16 12:00 Room Air 11/14/16 10:22 36.7 61 20 120/77 (91) 96 11/13/16 11:55 3 Physical Exam: General Appearance: WD/WN, no apparent distress Eyes: bilateral eyes PERRL, bilateral eyes EOMI Neck: supple, no JVD Respiratory/Chest: lungs clear, normal breath sounds, no respiratory distress Cardiovascular: regular rate, rhythm, no edema, no JVD, no murmur Abdomen: normal bowel sounds, non tender, soft Extremities: no pedal edema, no calf tenderness Neurologic/Psychiatric: alert, oriented x 3 Skin: warm/dry (right pectoral incision intact, no hematoma no ecchymosis), no rash, + pertinent finding Assessment and Plan Impression: 1. TBS s/p dual chamber ppm 11/13/2016 2. PAT started on sotalol got his 3rd dose this morning 3. pAF on coumadin and started on sotalol 4. PVC 5. CKD stage III 6. HLD 7. Small apical PTX post procedural Plan; -Continue with sotalol 80mg bid-got 3rd dose this morning -continue daily dosing of coumadin and daily PT/INR -daily ECG -Incentive spirometry due to small apical PTX -Would repeat CXR before discharge in few days -Pt not allowed to lift the right elbow over the right shoulder for 1 month or lift more than 10 pounds with the right arm for 2 weeks -device and wound check in 7-10 days at [facility] Discharge planning: home Medications: Medications Administered Medications (Trade) Dose Ordered Sig/Catina Route Start Time Stop Time Status Last Admin Dose Admin Midazolam HCl (Versed Inj) 5 mg STK-MED ONCE .ROUTE 11/13/16 09:10 11/13/16 09:11 DC 11/13/16 09:10 3 MG Cefazolin Sodium (Ancef 1000mg/55 ml D5W) 1,000 mg STK-MED ONCE IV 11/13/16 10:04 11/13/16 10:05 DC 11/13/16 10:04 1,000 MG Cefazolin Sodium 60 ml @ 100 mls/hr PREOP IV 11/13/16 06:00 11/13/16 18:00 DC 11/13/16 06:00 100 MLS/HR Acetaminophen (Tylenol Tab) 650 mg Q4H PRN PO 11/13/16 12:00 12/13/16 11:59 11/13/16 17:26 650 MG Multivitamins (Multivitamin Tab) 1 tab DAILY PO 11/14/16 09:00 12/14/16 08:59 11/14/16 09:00 1 TAB Pantoprazole Sodium (Protonix Tab) 40 mg DAILY PO 11/14/16 09:00 12/14/16 08:59 11/14/16 09:00 40 MG Rosuvastatin Calcium (Crestor Tab) 5 mg DAILY PO 11/14/16 09:00 12/14/16 08:59 11/14/16 08:59 5 MG Tamsulosin HCl (Flomax Cap) 0.4 mg DAILY PO 11/14/16 09:00 12/14/16 08:59 11/14/16 08:59 0.4 MG Warfarin Sodium (Coumadin Tab) 7.5 mg TODAY@1600 ONCE PO 11/13/16 16:00 11/13/16 16:01 DC 11/13/16 17:24 7.5 MG Sotalol HCl (Betapace Tab) 80 mg BID PO 11/13/16 12:45 12/13/16 12:44 11/14/16 08:59 80 MG Lab Results: CXR: RA and RV leads in position Small apical PTX noted ECG: AP with prolonged AV conduction QTc 360ms Pacemaker Interrogation Today: 98% AP overnight RA: 2.9mV; 399 ohms; 0.75V@0.4ms RV: 6.8mV; 646 ohms; 0.75V@0.4ms Last 24 Hours Test 11/14/16 05:30 Prothrombin Time 13.4 SECONDS Prothromb Time International Ratio 1.2
[2016-11-14] MEDS ORDERED: BTP80 PO (14:03)
--- NOTE | 2016-11-14 14:05 | Discharge Instructions ---
Discharge Instructions Date of Service Nov 14, 2016. Admission Reason for Admission: Tachybrady Syndrome, Sick Sinus Syndrome, A-Fib Discharge Discharge Diagnosis / Problem: TBS Discharge Goals Goal(s): Improve function Activity Recommendations Activity Limitations: as noted below Lifting Limitations: no more than 10 pounds (do not lift the right elbow over the right shoulder for 1 month; do not lift more than 10 pounds with the right arm for 2 weeks) May Resume Sexual Activity: after one week Shower/Bathe: tomorrow Driving or Machine Use: resume 1 day after discharge . Instructions / Follow-Up Instructions / Follow-Up ACTIVITY RECOMMENDATIONS: * Do not raise affected arm over head for 4 weeks. SPECIAL CARE INSTRUCTIONS: * If bleeding occurs, apply direct pressure to area for 5 minutes. * Call your doctor if you have severe pain, fever, drainage or bleeding at site. * Keep dry for 24 hours. * Keep any scheduled doctor's appointment. * Implant Card - hand held device with website information given. SKIN IRRITATION: * You may experience some redness and/or swelling in the area where radiation was administered. If any skin irritation occurs, please contact your family physician. FOLLOW UP VISIT: Keep any scheduled doctor appointments. Current Hospital Diet Patient's current hospital diet: AHA Diet (Heart Healthy) Discharge Diet Recommended Diet: AHA Diet (Heart Healthy) Procedures Procedures Performed: DUAL CHAMBER RATE RESPONSIVE PPM UNDER FLUROSCOPIC GUIDANCE WITH PERIPHERAL VENOGRAM Pending Studies Studies pending at discharge: no Medical Emergencies . Who to Call and When: Medical Emergencies: If at any time you feel your situation is an emergency, please call 911 immediately. . Non-Emergent Contact Non-Emergency issues call your: Supervisor Contact [employer] . . "Provider Documentation" section prepared by Aleisha Mcnamara. . VTE Core Measure Inpt VTE Proph given/why not?: Warfarin (Coumadin)
--- NOTE | 2016-11-14 14:09 | Discharge Summary ---
Discharge Summary Date of Service Nov 14, 2016. Discharge Summary Admission Date: Nov 13, 2016 at 11:55 Discharge Date: Nov 16, 2016 Discharge Disposition: Home Principal Diagnosis: tbs Secondary Diagnoses/Problems: pat small apical PTX paf pvc ckd stage iii hld Procedures: dual chamber permanent pacemaker under fluoroscopic guidance with peripheral venogram Medication Reconciliation New Medications: Sotalol HCl (Sotalol HCl) 80 Mg Tab 80 MG PO BID for 30 Days, #60 TAB Continued Medications: Celecoxib (CeleBREX) 200 Mg Cap 200 MG PO DAILY, CAP Cholecalciferol (Vitamin D-3) 2,000 Unit Tab 2000 UNITS PO DAILY Multivitamin (Multivitamin) Tab 1 TAB PO DAILY, TAB Pantoprazole (Protonix) 40 Mg Tab 40 MG PO DAILY, #30 TAB Rosuvastatin Calcium (Crestor) 5 Mg Tab 5 MG PO DAILY, TAB Tamsulosin Hcl (Flomax) 0.4 Mg Cap 0.4 MG PO DAILY, CAP Warfarin Sod (Jantoven) 7.5 Mg Tab 7.5 MG PO 3XWK, TAB TAKE 7.5MG Saturday Warfarin Sod (Jantoven) 7.5 Mg Tab 3.75 MG PO 4XWK, TAB TAKE A HALF TABLET (3.75MG) ON Saturday Discontinued Medications: Metoprolol Succinate (Toprol Xl) 25 Mg Tabcr 25 MG PO DAILY, #30 TAB Admission Information Physical Exam (per Admitting): aaox3, NAD NC/AT EOMI Supple, No JVD Nrl S1/S2, no murmur CTA b/l No w/r/r soft NT/ND No edema b/l No focal deficits Skin intact Hospital Course Pt was admitted for elective pacemaker implant followed by sotalol loading due to TBS and PAT. Pt underwent right sided dual chamber pacemaker on 11/13/2016; cxr following day did reveal a small apical PTX-pt was asymptomatic and given incentive spirometer for treatment. Pt was monitored for 7 doses of sotalol; QTc remained stable. He was discharged home after successful sotalol load in stable condition. Total time spent on discharge = 30 minutes This includes examination of the patient, discharge planning, medication reconciliation, and communication with other providers. Discharge Instructions ACTIVITY RECOMMENDATIONS: * Do not raise affected arm over head for 4 weeks. SPECIAL CARE INSTRUCTIONS: * If bleeding occurs, apply direct pressure to area for 5 minutes. * Call your doctor if you have severe pain, fever, drainage or bleeding at site. * Keep dry for 24 hours. * Keep any scheduled doctor's appointment. * Implant Card - hand held device with website information given. SKIN IRRITATION: * You may experience some redness and/or swelling in the area where radiation was administered. If any skin irritation occurs, please contact your family physician. FOLLOW UP VISIT: Keep any scheduled doctor appointments.
[2016-11-14 15:23] VITALS: BP 119/68; PULSE 53; TEMP 37; O2SAT 95
[2016-11-14] MEDS ORDERED: WARFARIN SOD 5 MG TAB PO SCH (16:00)
[2016-11-14 18:58] VITALS: BP 146/87; PULSE 69; TEMP 37.2; O2SAT 91
[2016-11-14 23:37] VITALS: BP 120/75; PULSE 57; TEMP 37.4; O2SAT 92
[2016-11-15 03:46] VITALS: BP 120/68; PULSE 60; TEMP 37.3; O2SAT 94
[2016-11-15 07:19] VITALS: BP 119/73; PULSE 63; TEMP 36.9; O2SAT 92
[2016-11-15] MEDS: ROSUVASTATIN CALCIUM 10 MG TAB PO SCH (07:48)
[2016-11-15] MEDS: SOTALOL HCL 80 MG TAB PO SCH ×2 (07:48→21:15)
[2016-11-15] MEDS: PANTOprazole SOD 40 MG TAB PO SCH (07:48)
[2016-11-15] MEDS: MULTIVITAMIN TAB PO SCH (07:48)
[2016-11-15] MEDS: TAMSULOSIN HCL 0.4 MG CAP PO SCH (07:48)
[2016-11-15 07:51] LABS: INR 1.4 (0.9-1.1); PROTHROMBIN TIME (PATIENT) 14.7 SECONDS (9.0-12.0)
[2016-11-15 11:13] VITALS: BP 137/80; PULSE 70; TEMP 36.8; O2SAT 94
--- NOTE | 2016-11-15 11:44 | CARDIOLOGY PROGRESS NOTE ---
DATE: 11/15/2016 DATE: 11/15/2016 FOLLOW-UP VISIT SUBJECTIVE: The patient is an 86-year-old male who is receiving a sotalol load. He has no complaints today. Review of his telemetry indicates that he is apacing. Minimal QT interval lengthening and no other arrhythmias. OBJECTIVE: GENERAL: He is alert and oriented. VITAL SIGNS: Blood pressure is 120/70, pulse is regular at 60 beats per minute. He is afebrile. HEAD, EYES, EARS, NOSE, AND THROAT: He wears corrective lenses. Mucous membranes are moist. He is normocephalic. NECK: Neck veins are flat. Carotids have good upstrokes bilaterally without bruits. Thyroid is nonpalpable. RESPIRATORY: Breath sounds equal bilaterally and clear to auscultation. CARDIOVASCULAR: Heart has a regular rhythm. Normal S1, S2. No S3, S4. No cardiac rubs or murmurs. GASTROINTESTINAL: Abdomen is soft, nontender without organomegaly. EXTREMITIES: Free of edema, digit clubbing, or cyanosis. NEUROLOGIC: Grossly intact. SKIN: Warm to touch. LYMPH NODES: Negative to palpation. LABORATORY DATA: INR is 1.4. IMPRESSION AND RECOMMENDATIONS: The patient has paroxysmal atrial fibrillation and is receiving a sotalol load. He should have a total of 6 doses by tomorrow and if all goes well be able to be discharged.
[2016-11-15 15:09] VITALS: BP 121/67; PULSE 79; TEMP 36.6; O2SAT 96
[2016-11-15] MEDS ORDERED: WARFARIN SOD 7.5 MG TAB PO ONE (16:00)
[2016-11-15] MEDS ORDERED: NURSING VERBAL MED ORDER ONE (16:00)
[2016-11-15 18:45] VITALS: BP 136/80; PULSE 58; TEMP 36.8; O2SAT 91
[2016-11-15 23:06] VITALS: BP 114/77; PULSE 59; TEMP 37; O2SAT 95
[2016-11-16 03:58] VITALS: BP 115/72; PULSE 71; TEMP 37; O2SAT 96
[2016-11-16 06:00] LABS: INR 1.4 (0.9-1.1); PROTHROMBIN TIME (PATIENT) 15.2 SECONDS (9.0-12.0)
[2016-11-16 07:23] VITALS: BP 145/77; PULSE 82; TEMP 36.7; O2SAT 94
[2016-11-16] MEDS: ROSUVASTATIN CALCIUM 10 MG TAB PO SCH (07:50)
[2016-11-16] MEDS: MULTIVITAMIN TAB PO SCH (07:51)
[2016-11-16] MEDS: PANTOprazole SOD 40 MG TAB PO SCH (07:51)
[2016-11-16] MEDS: SOTALOL HCL 80 MG TAB PO SCH (07:51)
[2016-11-16] MEDS: TAMSULOSIN HCL 0.4 MG CAP PO SCH (07:51)
--- NOTE | 2016-11-16 09:22 | PROGRESS NOTE ---
DATE: 11/16/2016 SUBJECTIVE: The patient had an uneventful night. He has completed 6 doses of sotalol without sequela. He is anxious to return home. He has an appointment set up for wound check next week as well as followup with Dr. Mncamara. We will discharge him this morning.
[2016-11-16 09:58] VITALS: BP 145/77; PULSE 82; TEMP 36.7; O2SAT 94
== END 2016-11-16 10:33 | disposition home or self-care (01) | DRG 243 ==
LOC: C.ACU 08:22 → ENRESERV 11:45 → C.2T 11:55
PROVIDERS: ADMIT Internal Medicine; ATTEND Internal Medicine
PROC: 0JH606Z Insertion of Pacemaker, Dual Chamber into Chest Subcutaneous Tissue and Fascia, Open Approach (ICD-10-PCS; principal; 2016-11-13 09:00)
PROC: 02HK3JZ Insertion of Pacemaker Lead into Right Ventricle, Percutaneous Approach (ICD-10-PCS; principal; 2016-11-13 09:00)
PROC: 02H63JZ Insertion of Pacemaker Lead into Right Atrium, Percutaneous Approach (ICD-10-PCS; principal; 2016-11-13 09:00)
DX: I49.5 Sick sinus syndrome (principal); J93.9 Pneumothorax, unspecified; I44.0 Atrioventricular block, first degree; I45.10 Unspecified right bundle-branch block; I49.3 Ventricular premature depolarization; I48.0 Paroxysmal atrial fibrillation; K21.0 Gastro-esophageal reflux disease with esophagitis; M15.9 Polyosteoarthritis, unspecified; I87.2 Venous insufficiency (chronic) (peripheral); F41.9 Anxiety disorder, unspecified; N18.3 Chronic kidney disease, stage 3 (moderate); E78.5 Hyperlipidemia, unspecified; Z79.899 Other long term (current) drug therapy; Z82.61 Family history of arthritis; Z82.49 Family history of ischemic heart disease and other diseases of the circulatory system; Z82.3 Family history of stroke

== ENCOUNTER → 2016-11-23 | Outpatient (CLI) | payer BC ==
[~2016-11-23] MED LIST changes: +BTP80 PO; -LACTATED RINGER'S 1000ML 1,000 ML IV SCH; -METO25TA3 PO
== END | disposition home or self-care (01) ==
LOC: C.LAB 10:57
PROVIDERS: ATTEND Urology
DX: Z00.00 Encounter for general adult medical examination without abnormal findings (principal); C61 Malignant neoplasm of prostate

== ENCOUNTER 2017-01-22 05:57 | Observation (INO) | payer BC ==
[~2017-01-22] VITALS: Ht 188 cm; Wt 100.9 kg
[2017-01-22] MEDS ORDERED: SODIUM CHLORIDE 0.9% 1000ML 1,000 ML IV STA (06:20)
[2017-01-22 06:32] LABS: BASO % 0.6 %; BASO ABS # 0.06 K/uL (0-0.2); COMPLETE YES; EOS % 3.7 %; HEMATOCRIT 46.5 % (42-52); IG% 0.1 %; LYMPH % 20.9 %; LYMPH ABS # 2.08 K/uL (1.2-3.4); MEAN CELL VOLUME 90.3 fL (80-100); MEAN CORPUSCULAR HEMOGLOBIN 30.7 pg (25-34); MEAN PLATELET VOLUME 10.8 fL (7.4-10.4); MONO % 7.7 %; PLATELET COUNT 157 K/uL (130-400); RED BLOOD COUNT 5.15 M/uL (4.7-6.1); WHITE BLOOD COUNT 9.93 K/uL (4.8-10.8)
--- NOTE | 2017-01-22 06:33 | DIAGNOSTIC IMAGING REPORT ---
CHEST ONE VIEW PORTABLE CLINICAL HISTORY: Chest pain. COMPARISON STUDY: Chest radiograph November 14, 2016. FINDINGS: A dual lead right subclavian pacemaker remains in place. There is no pneumothorax or pleural effusion. There is no evidence of pulmonary edema. Mild bibasilar opacities favor atelectasis. There is no consolidation to suggest pneumonia. Mild cardiomegaly is unchanged. IMPRESSION: No acute cardiopulmonary findings. Electronically signed by: Joel Osei M.D. 01/22/2017 6:32 AM Dictated Date/Time: 01/22/2017 6:32 AM
[2017-01-22 06:40] LABS: INR 2.1 (0.9-1.1); PARTIAL THROMBOPLASTIN RATIO 1.5
[2017-01-22] MEDS ORDERED: SODIUM CHLORIDE 0.9% 500ML 500 ML IV STA (06:41)
[2017-01-22 06:48] LABS: BUN/CREATININE RATIO 11.3 (10-20); CREATININE 1.72 mg/dl (0.60-1.40); POTASSIUM 4.5 mmol/L (3.5-5.1)
[2017-01-22 06:53] LABS: CKMB/CK RATIO 2.3 (0-3.0)
--- NOTE | 2017-01-22 06:55 | EMERGENCY ROOM VISIT NOTE ---
History Report prepared by Iqra: Ella Mccrary Under the Supervision of: Dr. Jesus Majano M.D. First contact with patient: 06:33 Chief Complaint: RAPID HEART RATE Stated Complaint: RAPID HEART RATE LASTING OVER 6HRS History of Present Illness The patient is an 86 year old male who presents to the Emergency Room with complaints of persistent tachycardia that began around 2300 last evening. The patient states that over the past fifteen years he has had a history of brief intervals of rapid heartbeats. He states that he could always alleviate his symptoms with taking a deep breath and holding it. The patient states that the intervals began to last up to one hour. He states that this past spring he stopped being able to stop the episodes. The patient states that he was evaluated in the emergency department for his symptoms multiple times. He states that on November 13 he had a pacemaker placed. The patient states that since he had the pacemaker placed he has intermittently felt short of breath and lightheaded. He states that he had his pacemaker adjusted when these symptoms began. The patient states that Saturday he again had his pacemaker adjusted from 60 beats per minute to 50 beats per minute (low heart rate threshold). He states that he was feeling short of breath upon arrival today, but denies any chest pain. Source of History: patient Onset: around 2300 last evening Position: other (global) Quality: other (tachycardia) Timing: other (persistent) Associated Symptoms: + SOB, No chest pain Note: Associated Symptoms: lightheadedness Review of Systems See HPI for pertinent positives & negatives. A total of 10 systems reviewed and were otherwise negative. Past Medical & Surgical Medical Problems: (1) Atrial fibrillation (2) Tachy-nader syndrome Family History Patient reports no known family medical history. Social History Smoking Status: Never Smoker Marital Status: Housing Status: lives with family Occupation Status: retired Current/Historical Medications Scheduled Metoprolol Succ (Toprol Xl) (Toprol-Xl), 12.5 MG PO DAILY Multivitamin (Multivitamin), 1 TAB PO DAILY Pantoprazole (Protonix), 40 MG PO DAILY Rosuvastatin Calcium (Crestor), 5 MG PO DAILY Sotalol HCl (Sotalol HCl), 80 MG PO BID Tamsulosin Hcl (Flomax), 0.4 MG PO DAILY Warfarin Sod (Jantoven), 7.5 MG PO 3XWK Warfarin Sod (Jantoven), 3.75 MG PO 4XWK Allergies Coded Allergies: Amoxicillin (Verified Allergy, Mild, RASH, 01/22/17) Levofloxacin (Verified Adverse Reaction, Intermediate, Tachycardia, ) Physical Exam Vital Signs Date Time Temp Pulse Resp B/P (MAP) Pulse Ox O2 Delivery O2 Flow Rate FiO2 01/22/17 09:00 92/66 01/22/17 08:50 104 14 94/66 96 01/22/17 08:40 89/66 01/22/17 08:30 105 24 84/63 95 01/22/17 08:20 81/62 01/22/17 08:13 86/59 01/22/17 08:12 88/64 01/22/17 08:10 104 13 94 01/22/17 08:03 87/62 01/22/17 07:50 104 15 95 01/22/17 07:33 90/61 01/22/17 07:32 82/61 01/22/17 07:31 74/65 01/22/17 07:30 105 13 94 01/22/17 07:13 107 16 98/56 98 01/22/17 06:18 114 01/22/17 06:03 36.6 119 20 86/66 98 Room Air Physical Exam GENERAL: Patient is in no acute distress. HEENT: No acute trauma, normocephalic atraumatic, mucous membranes moist, no nasal congestion, no scleral icterus. NECK: No stridor, no adenopathy, no meningismus, trachea is midline. LUNGS: Clear to auscultation bilaterally, no wheeze, no rhonchi, breath sounds equal. HEART: Tachycardic with a 2/6 systolic murmur and a regular rhythm. ABDOMEN: Soft, nontender, bowel sounds positive, no hernias, no peritonitis. EXTREMITIES: No cyanosis or edema, full range of motion of all the joints without pain or difficulty, no signs for acute trauma. NEUROLOGIC: Oriented x 3, no acute motor or sensory deficits, no focal weakness. SKIN: No rash, no jaundice, no diaphoresis. Medical Decision & Procedures ER Provider Diagnostic Interpretation: X-ray results as stated below per interpretation by me and the radiologist: CHEST ONE VIEW PORTABLE CLINICAL HISTORY: Chest pain. COMPARISON STUDY: Chest radiograph November 14, 2016. FINDINGS: A dual lead right subclavian pacemaker remains in place. There is no pneumothorax or pleural effusion. There is no evidence of pulmonary edema. Mild bibasilar opacities favor atelectasis. There is no consolidation to suggest pneumonia. Mild cardiomegaly is unchanged. IMPRESSION: No acute cardiopulmonary findings. Electronically signed by: Joel Osei M.D. 01/22/2017 6:32 AM Dictated Date/Time: 01/22/2017 6:32 AM Laboratory Results 01/22/17 06:16 Red Blood Count 5.15, Mean Corpuscular Volume 90.3, Mean Corpuscular Hemoglobin 30.7, Mean Corpuscular Hemoglobin Concent 34.0, Mean Platelet Volume 10.8, Neutrophils (%) (Auto) 67.0, Lymphocytes (%) (Auto) 20.9, Monocytes (%) (Auto) 7.7, Eosinophils (%) (Auto) 3.7, Basophils (%) (Auto) 0.6, Neutrophils # (Auto) 6.65, Lymphocytes # (Auto) 2.08, Monocytes # (Auto) 0.76, Eosinophils # (Auto) 0.37, Basophils # (Auto) 0.06 01/22/17 06:16 Test 01/22/17 06:16 White Blood Count 9.93 K/uL (4.8-10.8) Red Blood Count 5.15 M/uL (4.7-6.1) Hemoglobin 15.8 g/dL (14.0-18.0) Hematocrit 46.5 % (42-52) Mean Corpuscular Volume 90.3 fL (80-100) Mean Corpuscular Hemoglobin 30.7 pg (25-34) Mean Corpuscular Hemoglobin Concent 34.0 g/dl (32-36) Platelet Count 157 K/uL (130-400) Mean Platelet Volume 10.8 fL (7.4-10.4) Neutrophils (%) (Auto) 67.0 % Lymphocytes (%) (Auto) 20.9 % Monocytes (%) (Auto) 7.7 % Eosinophils (%) (Auto) 3.7 % Basophils (%) (Auto) 0.6 % Neutrophils # (Auto) 6.65 K/uL (1.4-6.5) Lymphocytes # (Auto) 2.08 K/uL (1.2-3.4) Monocytes # (Auto) 0.76 K/uL (0.11-0.59) Eosinophils # (Auto) 0.37 K/uL (0-0.5) Basophils # (Auto) 0.06 K/uL (0-0.2) RDW Standard Deviation 45.0 fL (36.4-46.3) RDW Coefficient of Variation 13.7 % (11.5-14.5) Immature Granulocyte % (Auto) 0.1 % Immature Granulocyte # (Auto) 0.01 K/uL (0.00-0.02) Prothrombin Time 23.0 SECONDS (9.0-12.0) Prothromb Time International Ratio 2.1 (0.9-1.1) Activated Partial Thromboplast Time 37.9 SECONDS (21.0-31.0) Partial Thromboplastin Ratio 1.5 Anion Gap 5.0 mmol/L (3-11) Est Creatinine Clear Calc Drug Dose 39.4 ml/min Estimated GFR () 40.8 Estimated GFR (Non- 35.2 BUN/Creatinine Ratio 11.3 (10-20) Calcium Level 9.0 mg/dl (8.5-10.1) Magnesium Level 2.4 mg/dl (1.8-2.4) Total Creatine Kinase 56 U/L (39-308) Creatine Kinase MB 1.3 ng/ml (0.5-3.6) Creatine Kinase MB Ratio 2.3 (0-3.0) Troponin I 0.027 ng/ml (0-0.045) Laboratory results reviewed by me. Medications Administered Medications (Trade) Dose Ordered Sig/Catina Route Start Time Stop Time Status Last Admin Dose Admin Sodium Chloride 1,000 ml @ 999 mls/hr Q1H1M STAT IV 01/22/17 06:20 01/22/17 07:20 DC 01/22/17 06:20 999 MLS/HR Sodium Chloride 500 ml @ 999 mls/hr Q31M STAT IV 01/22/17 06:41 01/22/17 07:11 DC 01/22/17 07:33 999 MLS/HR ECG Indication: tachycardia Rate (beats per minute): 118 Rhythm: junctional Findings: no acute ischemic change, no ectopy ED Course 0620: Ordered Sodium Chloride 1000 ml @ 999 mls/hr IV. 0637: The patient was evaluated in room B10. A complete history and physical exam was performed. 0641: Ordered Sodium Chloride 500 ml @ 999 mls/hr IV. 0647: I discussed the patients case with Jovany Newell Cardiology. He states that the patient should not receive any medications and states that he is going to come evaluate the patient. 0902: Per nursing staff, cardiology is at the patients bedside. 0924: Per nursing staff, the patient will be going for an ablation with Cardiology. The patient is in agreement with the treatment plan. Medical Decision The patient is an 86 year old male who presents to the ED with complaints of tachycardia. Differential diagnoses considered include SVT, junctional rhythm, afib/aflutter, pacemaker malfunction, CHF, IL, anemia, electrolyte imbalance. There is no leukocytosis or concerning anemia. INR is therapeutic for someone using Coumadin. There is some renal insufficiency/dehydration noted, no significant electrolyte abnormality requiring correction. EKG shows a junctional tachycardia, no acute ischemia. Rate is in the low 100s. Chest x- ray does not show CHF, pneumonia or pneumothorax. Cardiac enzyme testing 1 is not consistent with acute cardiac injury. The patient received about 1500 mL of IV saline, he is currently comfortable. His blood pressure is borderline low but he is asymptomatic with this value. There is no chest pain and he is not dyspneic. I spoke to the human resources psychologist on-call. The patient was seen here in the ER and will be taken to the cardiopulmonary suite for possible ablation. Please see the cardiology care notes. Medication Reconcilliation Current Medication List: was personally reviewed by me Blood Pressure Screening Patient's blood pressure: Low blood pressure Blood pressure disposition: Did not require urgent referral Consults Time Called: [phone] Consulting Physician: Jovany Newell Returned Call: [phone] I discussed the patients case with Jovany Newell Cardiology. He states that the patient should not receive any medications and states that he is going to come evaluate the patient. Impression Primary Impression: Hypotension Additional Impression: Tachycardia Scribe Attestation The scribe's documentation has been prepared under my direction and personally reviewed by me in its entirety. I confirm that the note above accurately reflects all work, treatment, procedures, and medical decision making performed by me. Departure Information Dispostion Other (transported to the cardio-pulmonary lab) Referrals Manjit Moscoso M.D. (PCP) Problem Qualifiers
[2017-01-22] MEDS ORDERED: METO25TA3 PO (07:00)
[2017-01-22 08:06] LABS: MAGNESIUM 2.4 mg/dl (1.8-2.4)
[2017-01-22] MEDS ORDERED: FENTANYL CITRATE INJ 50 MCG/1 ML 2 ML VIAL ONE (09:43)
[2017-01-22] MEDS ORDERED: MIDAZOLAM HCL 5 MG/ML 1 ML VIAL ONE (09:43)
--- NOTE | 2017-01-22 09:50 | History and Physical ---
History & Physical Date Jan 22, 2017. Chief Complaint palpitations History of Present Illness The patient is a 86 year old male with complaints of palpitations Past Medical/Surgical History Medical Problems: (1) Atrial fibrillation (2) Tachy-nader syndrome Additional History Hepatic Disease: No Endocrine Disorder: No Kidney Disease: No Hypertension: No Heart Disease: Yes Bleeding Tendencies: No Infectious Diseases: No Allergies Coded Allergies: Amoxicillin (Verified Allergy, Mild, RASH, 01/22/17) Levofloxacin (Verified Adverse Reaction, Intermediate, Tachycardia, ) Home Medications Scheduled Metoprolol Succ (Toprol Xl) (Toprol-Xl), 12.5 MG PO DAILY Multivitamin (Multivitamin), 1 TAB PO DAILY Pantoprazole (Protonix), 40 MG PO DAILY Rosuvastatin Calcium (Crestor), 5 MG PO DAILY Sotalol HCl (Sotalol HCl), 80 MG PO BID Tamsulosin Hcl (Flomax), 0.4 MG PO DAILY Warfarin Sod (Jantoven), 7.5 MG PO 3XWK Warfarin Sod (Jantoven), 3.75 MG PO 4XWK Physical Examination Skin: warm/dry Eyes: normal inspection Neck: supple Respiratory/Chest: lungs clear, normal breath sounds Cardiovascular: regular rate, rhythm, no edema, no murmur Abdomen / GI: normal bowel sounds Back: normal inspection Extremities: normal inspection Neurologic/Psych: no motor/sensory deficits, alert Addiitonal Comments: right pectoral incision intact and healed 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 pAF on coumadin 4. Hypotension Plan: Recommend EPS with possible ablation Discussed risks with patient and his which include but not limited to injury to blood vessel, [place] electrical system, arrhythmia, , stroke, heart attack, infection or bleeding; they expressed an understanding and agreed to proceed ASA Classification: ASA Class II Plan of Treatment EPS with possible ablation
--- NOTE | 2017-01-22 09:50 | History & Physical Bridge Note ---
H&P Re-Evaluation Bridge Note: I have examined the patient, reviewed the History & Physical and in the interval since the performance of the History & Physical I have noted the following changes of clinical significance: No changes noted
--- NOTE | 2017-01-22 09:51 | Procedure Note ---
Pre-Mod Sedation Assessment General Date of Moderate Sedation: Jan 22, 2017. Vital Signs: Vital Signs Past 12 Hours Date Time Temp Pulse Resp B/P (MAP) Pulse Ox O2 Delivery O2 Flow Rate FiO2 01/22/17 09:30 86/63 01/22/17 09:25 112 20 95 01/22/17 09:20 82/67 01/22/17 09:16 89/74 01/22/17 09:10 98/65 01/22/17 09:05 107 13 95 01/22/17 09:00 92/66 01/22/17 08:50 104 14 94/66 96 01/22/17 08:40 89/66 01/22/17 08:30 105 24 84/63 95 01/22/17 08:20 81/62 01/22/17 08:13 86/59 01/22/17 08:12 88/64 01/22/17 08:10 104 13 94 01/22/17 08:03 87/62 01/22/17 07:50 104 15 95 01/22/17 07:33 90/61 01/22/17 07:32 82/61 01/22/17 07:31 74/65 01/22/17 07:30 105 13 94 01/22/17 07:13 107 16 98/56 98 01/22/17 06:18 114 01/22/17 06:03 36.6 119 20 86/66 98 Room Air Review Cardiovascular: no edema, no murmur, + tachycardia Lungs: lungs clear Airway Class: II Pre-Sedation Airway Assessment Oral Cavity: WNL Short Thick Neck: No Hx of Sleep Apnea: No Smoking Status: Never Smoker Mallampati Classification: Class II ASA Classification: Class II Procedure Planning Contraindications-for Mod Sed: None Yes Notes The planned sedation has been discussed with the patient and consent obtained. I have identified the patient, determined the appropriateness of sedation and have assessed the patient immediately prior to the procedure. All medicine(s) and interventions are by my order.
--- NOTE | 2017-01-22 12:07 | Procedure Note ---
Post-Mod Sedation Assessment General Date of Moderate Sedation Jan 22, 2017. Vital Signs: Vital Signs Past 12 Hours Date Time Temp Pulse Resp B/P (MAP) Pulse Ox O2 Delivery O2 Flow Rate FiO2 01/22/17 12:05 60 16 108/60 (76) 95 Room Air 01/22/17 11:53 60 16 105/60 (75) 95 Room Air 01/22/17 09:30 86/63 01/22/17 09:25 112 20 95 01/22/17 09:20 82/67 01/22/17 09:16 89/74 01/22/17 09:10 98/65 01/22/17 09:05 107 13 95 01/22/17 09:00 92/66 01/22/17 08:50 104 14 94/66 96 01/22/17 08:40 89/66 01/22/17 08:30 105 24 84/63 95 01/22/17 08:20 81/62 01/22/17 08:13 86/59 01/22/17 08:12 88/64 01/22/17 08:10 104 13 94 01/22/17 08:03 87/62 01/22/17 07:50 104 15 95 01/22/17 07:33 90/61 01/22/17 07:32 82/61 01/22/17 07:31 74/65 01/22/17 07:30 105 13 94 01/22/17 07:13 107 16 98/56 98 01/22/17 06:18 114 01/22/17 06:03 36.6 119 20 86/66 98 Room Air Review - Discharge Criteria Vital Signs Stable: Yes Alert/Oriented/Conversant: Yes Returned to Baseline Mental St: Yes Nausea Absent/Minimal: Yes Pain/Discomfort/Absent/Minimal: Yes Normal/Baseline Respirations: Yes Active Bleeding?: No Pt Received D/C Instructions: N/A Prescriptions Given: None Specific Proced. D/C Criteria Distal Pulses Present (Cardiac: Yes Groin site assessed-Card Cath: Yes Voided Prior To Discharge: Yes Discharged Patients Adult Escort/Transportation: N/A
--- NOTE | 2017-01-22 12:09 | [facility] Post Operative Brief Note ---
Immediate Operative Summary Operative Date Jan 22, 2017. Pre-Operative Diagnosis svt Post-Operative Diagnosis avnrt Procedure(s) Performed eps, 3d mapping of his bundle and c/s os, slow pathyway radiofrequency ablation/modification Surgeon glenn toledo Electric Distribution Engineer Surgeon(s) none Estimated Blood Loss <5cc Findings see official report Fluids (cc crystalloids) 750cc Specimens none Drains none Anesthesia 5mg versed and 100mcg fentantyl Complication(s) None Disposition PCU
--- NOTE | 2017-01-22 12:12 | Discharge Instructions ---
Discharge Instructions Date of Service Jan 22, 2017. Admission Reason for Admission: Rapid Heart Rate Lasting Over 6HRS Discharge Discharge Diagnosis / Problem: avnrt Discharge Goals Goal(s): Improve function Activity Recommendations Activity Limitations: as noted below Lifting Limitations: no more than 10 pounds (do not do any heavy lifting > 10 pounds or squating for 1 week) Shower/Bathe: tomorrow Driving or Machine Use: resume 1 day after discharge . Instructions / Follow-Up Instructions / Follow-Up ACTIVITY RECOMMENDATIONS: It is common to feel weak and fatigue for a few days. * Do not drive or operate any motorized equipment for the next 1 day. * Limit stair usage (2 or 3 trips a day only) for the next three days. * Do not lift anything heavier than 10 pounds for the next 7 days. * Do not engage in vigorous exercise or any sports for the next 7 days. * You may shower the day after your procedure, but do not immerse the area for three days. Cleanse the site gently with soap and water. SPECIAL CARE INSTRUCTIONS: * You may replace the pressure dressing or band-aid the morning after the procedure. * After your procedure, it is normal to have a small bruise or small lump at the site. Examine your site daily for any change in the bruise or lump, redness, swelling, drainage or numbness. Notify your doctor if any change. BLEEDING: * If there is a small amount of bleeding at the site, lie down and apply firm pressure with a clean cloth for ten minutes. When the bleeding stops, lie quietly keeping the procedure limb straight for six hours. Notify your doctor as soon as possible. * If the bleeding does not stop after ten minutes or if there is a large amount of bleeding or spurting, call 911 immediately. Continue to lie down and hold firm pressure until help arrives. SKIN IRRITATION: * You may experience some redness and/or swelling in the area where radiation was administered. If any skin irritation occurs, please contact your family physician. FOLLOW UP VISIT: Keep any scheduled doctor appointments. Current Hospital Diet Patient's current hospital diet: AHA Diet (Heart Healthy) Discharge Diet Recommended Diet: AHA Diet (Heart Healthy) Procedures Procedures Performed: eps, 3d mapping of his bundle and c/s os, slow pathyway radiofrequency ablation/modification Pending Studies Studies pending at discharge: no Medical Emergencies . Who to Call and When: Medical Emergencies: If at any time you feel your situation is an emergency, please call 911 immediately. . Non-Emergent Contact Non-Emergency issues call your: Systems Software Engineer . . "Provider Documentation" section prepared by Aleisha Mcnamara. . VTE Core Measure Inpt VTE Proph given/why not?: Warfarin (Coumadin)
[2017-01-22] MEDS ORDERED: TPRSR25 PO (12:13)
[2017-01-22] MEDS ORDERED: ACETAMINOPHEN 325 MG TAB PO PRN (12:15)
--- NOTE | 2017-01-22 12:16 | Discharge Summary ---
Discharge Summary Date of Service Jan 22, 2017. Discharge Summary Admission Date: 01/22/2017 Discharge Date: Jan 23, 2017 Discharge Disposition: Home Principal Diagnosis: avnrt Secondary Diagnoses/Problems: tbs s/p ppm 11/2016 pAF on coumadin PVCs CKD stage III HLD Procedures: EPS, 3d mapping of his bundle and C/S os, slow pathway modification Medication Reconciliation New Medications: Metoprolol Succinate (Metoprolol Succinate ER) 25 Mg Tabcr 25 MG PO DAILY for 30 Days, #30 TAB Continued Medications: Multivitamin (Multivitamin) Tab 1 TAB PO DAILY, TAB Pantoprazole (Protonix) 40 Mg Tab 40 MG PO DAILY, #30 TAB Rosuvastatin Calcium (Crestor) 5 Mg Tab 5 MG PO DAILY, TAB Tamsulosin Hcl (Flomax) 0.4 Mg Cap 0.4 MG PO DAILY, CAP Warfarin Sod (Jantoven) 7.5 Mg Tab 7.5 MG PO 3XWK, TAB TAKE 7.5MG Saturday Warfarin Sod (Jantoven) 7.5 Mg Tab 3.75 MG PO 4XWK, TAB TAKE A HALF TABLET (3.75MG) ON Saturday Discontinued Medications: Metoprolol Succ (Toprol Xl) (Toprol-Xl) 25 Mg Tabcr 12.5 MG PO DAILY, #30 TAB Sotalol HCl (Sotalol HCl) 80 Mg Tab 80 MG PO BID for 30 Days, #60 TAB Admission Information Physical Exam (per Admitting): aaox3, NAD Supple, No JVD Reg S1/S2 tachycardic, no murmur CTA b/l no w/r/r soft NT/ND No edema b/l LE No focal deficits Skin intact Hospital Course Pt admitted due to AVNRT recommended an EPS with ablation; he underwent procedure without any complications, monitored overnight; sotalol was stopped and discharged home in stable condition Total time spent on discharge = 30 minutes This includes examination of the patient, discharge planning, medication reconciliation, and communication with other providers. Discharge Instructions ACTIVITY RECOMMENDATIONS: It is common to feel weak and fatigue for a few days. * Do not drive or operate any motorized equipment for the next 1 day. * Limit stair usage (2 or 3 trips a day only) for the next three days. * Do not lift anything heavier than 10 pounds for the next 7 days. * Do not engage in vigorous exercise or any sports for the next five days. * You may shower the day after your procedure, but do not immerse the area for three days. Cleanse the site gently with soap and water. SPECIAL CARE INSTRUCTIONS: * You may replace the pressure dressing or band-aid the morning after the procedure. * After your procedure, it is normal to have a small bruise or small lump at the site. Examine your site daily for any change in the bruise or lump, redness, swelling, drainage or numbness. Notify your doctor if any change. BLEEDING: * If there is a small amount of bleeding at the site, lie down and apply firm pressure with a clean cloth for ten minutes. When the bleeding stops, lie quietly keeping the procedure limb straight for six hours. Notify your doctor as soon as possible. * If the bleeding does not stop after ten minutes or if there is a large amount of bleeding or spurting, call 911 immediately. Continue to lie down and hold firm pressure until help arrives. SKIN IRRITATION: * You may experience some redness and/or swelling in the area where radiation was administered. If any skin irritation occurs, please contact your family physician. FOLLOW UP VISIT: Keep any scheduled doctor appointments.
--- NOTE | 2017-01-22 13:18 | OPERATIVE REPORT ---
DATE OF OPERATION: 01/22/2017 PREOPERATIVE DIAGNOSIS: Supraventricular tachycardia. POSTOPERATIVE DIAGNOSIS: Atrioventricular luan reentrant tachycardia. PROCEDURE: Electrophysiology study, 3D mapping of the His bundle region and coronary sinus os, pacemaker interrogation and reprogramming, slow pathway modification. SURGEON: Dr. Aleisha Mcnamara. SAT INSTRUCTOR: None. ANESTHESIA: Monitored conscious sedation was administered under my supervision by Tamica Berger. Start time 9:52, end time 11:53. Total of 5 mg of Versed, 100 mcg of fentanyl. INTRAVENOUS FLUIDS: 750 mL. COMPLICATIONS: None. CONDITION: Stable. URINE OUTPUT: Not applicable. SPECIMENS: None. FINDINGS: See below. DRAINS: None. 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 He was in the Emergency Room today in arrhythmia, SVT at a rate of 110. 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 The patient agreed to undergo the procedure. CONSENT: Consent was obtained prior to the patient going into the electrophysiology lab. The patient was informed of risks, benefits, alternatives to the procedure. Risks include but not limited to sudden cardiac , cardiac arrhythmias, cerebrovascular accident, myocardial infarction, injury to the blood vessels, chamber of the heart, injury to the nome electrical system where he will become dependent on his pacemaker, bleeding and infection. The patient understood these risks and agreed to the procedure as planned. Informed consent was obtained. DESCRIPTION OF THE PROCEDURE: The patient was brought into the electrophysiology lab in fasting state. He was connected to continuous cardiac monitoring. A timeout was performed to ensure patient's identity and procedure correctly. The patient was prepped and draped over the bilateral groins in normal surgical standard fashion. Monitored conscious sedation was given throughout the procedure for patient's comfort level. Van precautions were maintained throughout the procedure. Modified Seldinger technique under ultrasound guidance with a micropuncture kit. Venous access was obtained in the following manner. The left femoral vein, a 6-Honduran sheath followed by a Germania quadripolar catheter positioned into the right ventricular apex. A 7-Honduran sheath followed by Hisser quadripolar catheter positioned over the His bundle. A 7-Honduran sheath followed by a Biosense Decapolar coronary sinus catheter positioned down the coronary sinus. Of note, when I was getting venous access in the left femoral vein I ended up hitting the left femoral artery but we held manual compression for significant amount of time and there was no hematoma. Right femoral vein had a 6-Honduran sheath followed by Germania quadripolar catheter positioned in the high right atrium. A 6-Honduran sheath that was ultimately swapped out for an SRO that was then followed by the Biosense DF curve 4 mm ablation catheter. The patient was in the SVT during the entire time in placing the catheters. The tachycardia cycle length was 560 milliseconds, the V to A time was 38 milliseconds and there was concentric retrograde A with ventricular pacing and entrainment he had a VAV response with ventricular pacing with PPI minus tachycardia cycle length was 200 milliseconds. We were able to break the SVT with atrial burst pacing. 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 With the ablation catheter I did 3D mapping of the His bundle cloud as well as the coronary sinus os. Then we positioned the ablation catheter on the low right atrial septum where we had good AV 1:3 ratio and we gave a series of radiofrequency gibson. Ultimately a little higher up close to the His and a little bit towards the coronary sinus os there was a ridge and this was where I got good junctional rhythms. We gave a more series of radiofrequency ablations right in this area at 30 borden. Of note, during some of the radiofrequency ablation points he did go into the AVNRT. The AH interval preablation was 102 milliseconds and the HV was 42 milliseconds. Ultimately, we did have 5 or 6 good ablation points that we got junctional rhythm. The ablation catheter was then removed from the heart and electrophysiology post-ablation study was performed with the following findings: Cycle length 1.194 milliseconds, AH 110 milliseconds, HV 50 milliseconds, AV Wenckebach 620 milliseconds, AV node ERP was 800/560, 700/630. The atrial ERP was 800/320, 700/340. Right ventricular ERP was 600/350 and 550/410. With atrial burst pacing I was not able to induce any AVNRT. With giving doubles from the coronary sinus since I was able to have better capture there I did not have any inducible AVNRT or evidence of even echo beats. All the catheters were removed from the body and the sheaths were pulled and using manual compression hemostasis was obtained. Pre-ablation pacemaker interrogation the right atrial lead 1.9 millivolts, impedance 418 ohms, threshold 1 volt at 0.4 milliseconds. The right ventricular lead 11.5 millivolts, impedance 551 ohms, threshold 0.75 volts at 0.4 milliseconds. Post-ablation pacemaker interrogation right atrial lead 1.6 millivolts, impedance 399 ohms, threshold 0.75 volts at 0.4 milliseconds. Right ventricular lead 7.1 millivolts, impedance 532 ohms, threshold 0.75 volts at 0.4 milliseconds. Of note, the pacemaker was reprogrammed to VVI 30 during the procedure. The pacemaker was reprogrammed to a base rate of 60 and upper tracking rate of 110. Atrial burst pacing was turned on. IMPRESSION: 1. Successful slow pathway modification for atrioventricular luan reentrant tachycardia. 2. Atrioventricular luan disease. PLAN: Monitor patient overnight, 12-lead ECG. We can stop his sotalol but we will continue his Coumadin and we will increase his metoprolol from 12.5 a day to 25 a day. He will follow up in my office in 1 month to see me and he is not to do any heavy lifting or squatting for 1 week. I attest to the content of the Intraoperative Record and any orders documented therein. Any exceptions are noted below. JAD
[2017-01-22] MEDS ORDERED: IV FLUIDS COMPLETED PRN (14:00)
[2017-01-22 15:05] VITALS: BP 105/68; PULSE 61; TEMP 36.5; O2SAT 93
[2017-01-22] MEDS ORDERED: WARFARIN SOD 7.5 MG TAB PO SCH (16:00)
[2017-01-22 16:31] VITALS: BP 105/68; PULSE 61; TEMP 36.5; O2SAT 93; Ht 188 cm; Wt 100.9 kg
[2017-01-22 19:02] VITALS: BP 103/68; PULSE 76; TEMP 36.8; O2SAT 96
--- NOTE | 2017-01-22 21:45 | Cardiology Consultation ---
Cardiology Consultation Date of Consultation: Jan 22, 2017. Requesting Physician: Dr. Mcnamara Reason for Consultation: Tachycardia, second opinion Pt evaluation today including: conversation w/ patient, conversation w/ family , physical exam, review of studies, conversation w/ attending History of Present Illness This is an 86-year-old male who has a history of AV conduction disease for which she required a pacemaker. Additionally he has a history of palpitations and has had a tachycardia identified clinically and on pacemaker monitoring. The tachycardia appears to be a 1-1 A-V tachycardia, with nearly simultaneous atrial and ventricular activity. The onset of the tachycardia has not been recorded as the rate is just over 100 bpm and the pacemaker does not recognize it as an abnormal tachycardia and could not record the onset. He came into the emergency room with palpitations and was in this tachycardia. Other than palpitations she does not have much in the way of symptoms. Past Medical/Surgical History (1) Tachy-nader syndrome (2) Tachycardia Family History Patient reports no known family medical history. Social History Smoking Status: Never Smoker History of Alcohol Use: Yes (Wine 1/day) Review of Systems Constitutional: No fever, No weight loss, No weakness Respiratory: No cough, No wheezing, No shortness of breath, No dyspnea on exertion Cardiac: + see HPI, + palpitations Abdomen: No pain, No nausea, No vomiting, No diarrhea, No GI bleeding Male : No urinary frequency, No nocturia more than once/night, No slowing stream, No sexual dysfunction Neurologic: No paralysis, No weakness, No numbness/tingling, No balance problems Heme: No abnormal bleeding/bruising, No clotting problems Endo: No fatigue Skin: No problem reported All Other Systems: Reviewed and Negative Allergies Coded Allergies: Amoxicillin (Verified Allergy, Mild, RASH, 01/22/17) Levofloxacin (Verified Adverse Reaction, Intermediate, Tachycardia, ) Medications Current Inpatient Medications Medications (Trade) Dose Ordered Sig/Catina Route Start Time Stop Time Status Last Admin Dose Admin Acetaminophen (Tylenol Tab) 650 mg Q6H PRN PO 01/22/17 12:15 02/21/17 12:14 Metoprolol Succinate (Toprol Xl Tab) 25 mg DAILY PO 01/23/17 09:00 02/22/17 08:59 Multivitamins (Multivitamin Tab) 1 tab DAILY PO 01/23/17 09:00 02/22/17 08:59 Pantoprazole Sodium (Protonix Tab) 40 mg DAILY PO 01/23/17 09:00 02/22/17 08:59 Rosuvastatin Calcium (Crestor Tab) 5 mg DAILY PO 01/23/17 09:00 02/22/17 08:59 Tamsulosin HCl (Flomax Cap) 0.4 mg DAILY PO 01/23/17 09:00 02/22/17 08:59 Warfarin Sodium (Coumadin Tab) 3.75 mg 1600 PO 01/22/17 16:00 02/21/17 15:59 01/22/17 16:22 3.75 MG Miscellaneous (Iv Fluids Completed) 1 ea PRN PRN N/A 01/22/17 14:00 01/22/18 13:59 Physical Exam Vital Signs Past 12 Hours Date Time Temp Pulse Resp B/P (MAP) Pulse Ox O2 Delivery O2 Flow Rate FiO2 01/22/17 20:00 Room Air 01/22/17 19:02 36.8 76 18 103/68 (80) 96 Room Air 01/22/17 16:31 36.5 61 18 105/68 93 Room Air 01/22/17 15:15 Room Air 01/22/17 15:05 36.5 61 18 105/68 (80) 93 Room Air 01/22/17 13:00 Room Air 01/22/17 12:05 60 16 108/60 (76) 95 Room Air 01/22/17 11:53 60 16 105/60 (75) 95 Room Air 01/22/17 09:30 86/63 Constitutional: General Apperance: heathly-appearing Level of Distress: NAD Psychiatric: Mental Status: active & alert Head: normocephalic Eyes: EOM: EOMI ENMT: normal ENT inspection, hearing grossly normal Neck: supple, no masses Lungs: Respiratory effort: no dyspnea, good air movement Auscultation: breath sounds normal, no wheezing Cardiovascular: Heart Auscultation: RRR, no murmurs, no rubs, no gallops, tachycardia Peripheral Pulses: Bruits: none appreciated Abdomen: Bowel Sounds: normal Inspection & Palpation: soft, no tenderness, guarding & rebound, no masses Musculoskeletal: normal strength (5/5 throughout) Extremities: no edema Neurologic: Cranial Nerves: grossly intact Sensation: grossly intact Data Laboratory Results: Last 24 Hours Test 01/22/17 06:16 White Blood Count 9.93 K/uL Red Blood Count 5.15 M/uL Hemoglobin 15.8 g/dL Hematocrit 46.5 % Mean Corpuscular Volume 90.3 fL Mean Corpuscular Hemoglobin 30.7 pg Mean Corpuscular Hemoglobin Concent 34.0 g/dl Platelet Count 157 K/uL Mean Platelet Volume 10.8 fL Neutrophils (%) (Auto) 67.0 % Lymphocytes (%) (Auto) 20.9 % Monocytes (%) (Auto) 7.7 % Eosinophils (%) (Auto) 3.7 % Basophils (%) (Auto) 0.6 % Neutrophils # (Auto) 6.65 K/uL Lymphocytes # (Auto) 2.08 K/uL Monocytes # (Auto) 0.76 K/uL Eosinophils # (Auto) 0.37 K/uL Basophils # (Auto) 0.06 K/uL RDW Standard Deviation 45.0 fL RDW Coefficient of Variation 13.7 % Immature Granulocyte % (Auto) 0.1 % Immature Granulocyte # (Auto) 0.01 K/uL Prothrombin Time 23.0 SECONDS Prothromb Time International Ratio 2.1 Activated Partial Thromboplast Time 37.9 SECONDS Partial Thromboplastin Ratio 1.5 Sodium Level 144 mmol/L Potassium Level 4.5 mmol/L Chloride Level 111 mmol/L Carbon Dioxide Level 28 mmol/L Anion Gap 5.0 mmol/L Blood Urea Nitrogen 19 mg/dl Creatinine 1.72 mg/dl Est Creatinine Clear Calc Drug Dose 39.4 ml/min Estimated GFR () 40.8 Estimated GFR (Non- 35.2 BUN/Creatinine Ratio 11.3 Random Glucose 126 mg/dl Calcium Level 9.0 mg/dl Magnesium Level 2.4 mg/dl Total Creatine Kinase 56 U/L Creatine Kinase MB 1.3 ng/ml Creatine Kinase MB Ratio 2.3 Troponin I 0.027 ng/ml EKG: On arrival his electrocardiogram demonstrates a narrow complex tachycardia at a heart rate of 118 bpm, atrial activity is probably present immediately after the QRS. There is no pacing present on the electrocardiogram. Assessment & Plan His pacemaker was interrogated, event monitors indicate a 1-1 supraventricular tachycardia not involving the pacemaker. Single ventricular extrastimuli were introduced using the pacemaker and programmed stimulation mode, the atrial electrogram could be advanced with no change in the following AA interval. With a short enough S1-S2 interval the tachycardia was terminated with a single extrastimulus. The tachycardia was reinduced with atrial premature extrastimuli introduced in a decremental fashion, demonstrating dual AV luan pathways with induction of the tachycardia at the A-V jump. This is all consistent with typical AV luan reentry. My recommendation would be to proceed with ablation, eliminating the need for medications which would probably not be successful over the long run. The frequency of the arrhythmia is probably exacerbated by fast pathway degradation , therefore increased pacing is likely following ablation however the pacemaker is in place and functioning well. The patient and his manager med surg understand. Thank you for allowing me to participate in his care.
[2017-01-22 23:56] VITALS: BP 114/68; PULSE 66; TEMP 36.8; O2SAT 97
[2017-01-23 04:00] VITALS: BP 128/72; PULSE 65; TEMP 37; O2SAT 96
[2017-01-23 07:37] VITALS: BP 118/69; PULSE 68; TEMP 36.9; O2SAT 94
[2017-01-23] MEDS ORDERED: COUGH DROP (SUGAR FREE) LOZ 24 LOZ/1 BOX ONE (07:48)
--- NOTE | 2017-01-23 08:18 | Cardiology Follow-Up ---
Subjective Subjective Date of Service: Jan 23, 2017. Pt evaluation today including: conversation w/ patient, physical exam, lab review Pain: none Problem List Medical Problems: (1) Atrial fibrillation with rapid ventricular response Status: Acute (2) Hypotension Status: Acute (3) Paroxysmal atrial fibrillation with rapid ventricular response Status: Acute (4) Tachycardia Status: Chronic Review of Systems Constitutional: No weakness Respiratory: No cough, No shortness of breath, No dyspnea on exertion Cardiac: No edema, No palpitations Abdomen: No nausea, No vomiting, No diarrhea Neurologic: No weakness Endo: No fatigue Objective Vital Signs Last Vital Signs Documentation Date Time Temp Pulse Resp B/P (MAP) Pulse Ox O2 Delivery O2 Flow Rate FiO2 01/23/17 07:37 36.9 68 16 118/69 (85) 94 Room Air Physical Exam: General Appearance: WD/WN, no apparent distress Eyes: bilateral eyes PERRL, bilateral eyes EOMI Neck: supple, no JVD Respiratory/Chest: lungs clear, normal breath sounds Cardiovascular: regular rate, rhythm, no edema, no JVD, no murmur Abdomen: non tender (b/l groins soft no hematoma; left groin with mild eccymosis), soft Extremities: no pedal edema Neurologic/Psychiatric: alert, oriented x 3 Skin: warm/dry, no rash, + pertinent finding Assessment and Plan Impression: 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 pAF by history remains on coumadin Plan: -Ok for discharge home today -Stop sotalol -Increase toprol to 25mg daily -Continue coumadin -No heavy lifting or squatting for 1 week -F/u in my office in 1 month Discharge planning: home Medications: Medications Administered Medications (Trade) Dose Ordered Sig/Catina Route Start Time Stop Time Status Last Admin Dose Admin Sodium Chloride 1,000 ml @ 999 mls/hr Q1H1M STAT IV 01/22/17 06:20 01/22/17 07:20 DC 01/22/17 06:20 999 MLS/HR Sodium Chloride 500 ml @ 999 mls/hr Q31M STAT IV 01/22/17 06:41 01/22/17 07:11 DC 01/22/17 07:33 999 MLS/HR Midazolam HCl (Versed Inj) 5 mg STK-MED ONCE .ROUTE 01/22/17 09:43 01/22/17 09:44 DC 01/22/17 09:43 5 MG Fentanyl Citrate (Fentanyl Inj) 100 mcg STK-MED ONCE .ROUTE 01/22/17 09:43 01/22/17 09:44 DC 01/22/17 09:43 100 MCG Warfarin Sodium (Coumadin Tab) 3.75 mg 1600 PO 01/22/17 16:00 02/21/17 15:59 01/22/17 16:22 3.75 MG Lab Results: Telemetry: AP ECG: AP PPM Interrogation Today: No arrhythmias AP overnight stable lead thresholds
[2017-01-23] MEDS ORDERED: ROSUVASTATIN CALCIUM 10 MG TAB PO SCH (09:00)
[2017-01-23] MEDS ORDERED: METOPROLOL SUCC 25MG EXT REL TAB PO SCH (09:00)
[2017-01-23] MEDS ORDERED: MULTIVITAMIN TAB PO SCH (09:00)
[2017-01-23] MEDS ORDERED: PANTOprazole SOD 40 MG TAB PO SCH (09:00)
[2017-01-23] MEDS ORDERED: TAMSULOSIN HCL 0.4 MG CAP PO SCH (09:00)
[2017-01-23 09:27] VITALS: BP 118/69; PULSE 68; TEMP 36.9; O2SAT 94
== END 2017-01-23 09:51 | disposition home or self-care (01) ==
LOC: C.EDB 05:58 → ENRESERV 11:16 → C.2T 12:06
PROVIDERS: ADMIT Internal Medicine; ATTEND Internal Medicine
DX: I47.1 Supraventricular tachycardia (principal); I95.9 Hypotension, unspecified; I49.5 Sick sinus syndrome; I48.0 Paroxysmal atrial fibrillation; Z95.0 Presence of cardiac pacemaker; Z79.01 Long term (current) use of anticoagulants; N18.3 Chronic kidney disease, stage 3 (moderate); E78.5 Hyperlipidemia, unspecified

== ENCOUNTER → 2017-02-19 | Outpatient (CLI) | payer BC ==
[~2017-02-19] MED LIST changes: -BTP80 PO; -CHOL200027 PO; -CLB/200 PO; +TPRSR25 PO
[2017-02-19 10:08] LABS: BLOOD UREA NITROGEN 14 mg/dl (7-18); BUN/CREATININE RATIO 10.4 (10-20); CALCIUM 8.7 mg/dl (8.5-10.1); CARBON DIOXIDE 27 mmol/L (21-32); CHLORIDE 110 mmol/L (98-107); CREATININE 1.38 mg/dl (0.60-1.40); GLUCOSE 104 mg/dl (70-99); POTASSIUM 4.4 mmol/L (3.5-5.1); SODIUM 145 mmol/L (136-145)
== END ==
LOC: C.LABFOXMH 09:06
PROVIDERS: ATTEND Internal Medicine
DX: N18.3 Chronic kidney disease, stage 3 (moderate) (principal)

== ENCOUNTER → 2017-03-15 | Outpatient (CLI) | payer BC ==
[~2017-03-15] MED LIST changes: +PANT1TAB3 PO; -PANT1TAB48 PO
[2017-03-15 10:09] LABS: BLOOD UREA NITROGEN 19 mg/dl (7-18); BUN/CREATININE RATIO 13.5 (10-20); CALCIUM 8.5 mg/dl (8.5-10.1); CARBON DIOXIDE 30 mmol/L (21-32); CHLORIDE 110 mmol/L (98-107); CREATININE 1.41 mg/dl (0.60-1.40); GLUCOSE 92 mg/dl (70-99); POTASSIUM 4.6 mmol/L (3.5-5.1); SODIUM 142 mmol/L (136-145)
== END | disposition home or self-care (01) ==
LOC: C.LABFOXMH 09:31
PROVIDERS: ATTEND Internal Medicine
DX: N18.3 Chronic kidney disease, stage 3 (moderate) (principal)

== ENCOUNTER → 2017-05-16 | Outpatient (CLI) | payer BC ==
[2017-05-16 10:01] LABS: ALBUMIN 3.5 gm/dl (3.4-5.0); ALT/SGPT 19 U/L (12-78); BLOOD UREA NITROGEN 19 mg/dl (7-18); CALCIUM 8.7 mg/dl (8.5-10.1); CARBON DIOXIDE 23 mmol/L (21-32); CHOLESTEROL 139 mg/dl (0-200); CREATININE 1.63 mg/dl (0.60-1.40); GLUCOSE 93 mg/dl (70-99); SODIUM 141 mmol/L (136-145)
[2017-05-16 10:06] LABS: ALKALINE PHOSPHATASE 45 U/L (45-117); AST/SGOT 16 U/L (15-37); LDL CHOLESTEROL CALCULATED 71 mg/dl; TOTAL PROTEIN 6.6 gm/dl (6.4-8.2)
--- NOTE | 2017-05-27 14:42 | CODING QUERY NO DIAGNOSIS ---
: 1930 Valid Physician Order Needed A valid physician order must be submitted in order to properly bill for the service(s) provided, including date of service(s), valid diagnosis, and physician signature. If these tests are done on a recurring basis the original physician order must be submitted in order to code and bill for the service(s) provided. Please fax us the original, signed physician order so that we may expedite billing to [phone] DOS 05/16/2017 * Comp Metabolic Panel * Lipid Profile Thank you Sarah Sandoval [facility] Information Management
== END | disposition home or self-care (01) ==
LOC: C.LABFOXMH 08:10
PROVIDERS: ATTEND Internal Medicine
DX: E78.00 Pure hypercholesterolemia, unspecified (principal)

== ENCOUNTER → 2017-06-27 | Outpatient (CLI) | payer BC | END | disposition home or self-care (01) | LOC: C.LAB 13:31 | PROVIDERS: ATTEND Urology | DX: N39.43 Post-void dribbling (principal) ==

== ENCOUNTER → 2017-07-09 | Outpatient (CLI) | payer BC | LOC: C.LABFOXMH 11:08 | PROVIDERS: ATTEND Internal Medicine | DX: N30.91 Cystitis, unspecified with hematuria (principal) ==

== ENCOUNTER → 2017-07-12 | Outpatient (CLI) | payer BC | LOC: C.LABSPEC 11:35 | PROVIDERS: ATTEND Urology | DX: N40.1 Benign prostatic hyperplasia with lower urinary tract symptoms (principal); N39.0 Urinary tract infection, site not specified ==

== ENCOUNTER → 2017-07-16 | Outpatient (CLI) | payer BC ==
--- NOTE | 2017-07-17 05:44 | PAP/PSG TECHNICIAN REPORT ---
[facility] [employer] Officer Polysomnogram Report Study name: None Report date: 07/17/2017 Study date: 07/16/2017 Referring Physician: Manjit Moscoso MD. Name: GIOVANNI BAKER Interpreting Physician: Dion Zarate M.D. Date of : 1930 [employer] Officer: Yesy Valdez RPSGT. Sex: Male Age: 86 StudyType: PSG PAP Weight: 233.8 lbs Height: 86 years, Height 72" BMI: 31.71 Medications: Vitamin D3 1000 units, Metoprolol 25 mg, Tamulosin 0.4mg, Celebrex 100 mg, Pantoprazole 40 mg, Rosuvastatin 5 mg, Coumadin 7.5 mg Patient History 86 yr. old male here for a new titration sleep study. Per [employer] notes patient was originally schedule for a split night, however only 52106/ titration was approved. Patient had a HST through Dr. Dominique and showed an CRISSY of 17.7. ESS 09/29. Parameters Monitored NPSG: E1-M2, E2-M1, Fp1-M2, Fp2-M1, F3-M2, F4-M2, F4-M1, C3-M2, C4-M2, C4-M1, O1-M2, O2-M2, O2-M1, T3-M2, T4-M1, P3-M2, P4-M1, CHIN1, CHIN2, HR, EKG, Legs, PFLOW, SNOR, FLOW, CFLOW, Tidal Volume, THOR, ABDO, SpO2, PLTH, CPRESS, ETCO2 Wave, ETCO2, pH Sleep Architecture Sleep Stages Time at Lights Off 10:36:29 PM STAGES Time (min.) TST (%) Time at Lights On 5:26:29 AM Wake 113.0 -- Total Recording Time (TRT) 410.50 min. N1 70.0 24 Total Sleep Period (TSP) 397.0 min. N2 150.0 51 Total Sleep Time (TST) 297.0min. N3 40.0 13 Awake Time 113.5 min. REM 37.0 12 Wake after Sleep Onset 101.0 min. Sleep Efficiency (SE) 72 % Sleep Onset Latency (WENDY) 12.0 min. Number of Stage 1 Shifts None Awakenings 19 Stage Changes 72 Number of REM periods 4 REM 37.0 12 REM Latency 59.5 min. NREM 260.0 88 Body Position Analysis Supine Right Left Side Prone Vertical Total Sleep Time (min.) 9.1 105.5 189.0 294.50 7.8 0.0 Total Sleep Time (%) 0% 36% 64% 99 1% N/A% Total Sleep Time REM (min.) 0.0 0.0 37.0 None 0.0 0.0 Total Sleep Time NREM (min.) 0.0 105.5 152.0 None 2.5 0.0 Intermittent Wake (min.) 9.1 63.0 35.7 None 5.3 0.0 Total Sleep Period (%) 2% None None None None None Arousals Myoclonus (PLM) * Events Count Index Events Count Index Spontaneous 8 2 Events Awake (PLMW) 94 49.9 Respiratory 7 1.6 Events Asleep w/ Arousal (PLMA) 16 3.2 PLM 16 3 Events Asleep w/o Arousal (PLMS) 151 30.5 Snoring 1 0 Total Asleep 167 33.7 Total 32 6 Total 261 38 Respiratory Analysis * CA OA MA CH H RERA Total Count 4 0 0 0 33 4 37 Index 0.8 0.0 0.0 0 6.7 1 8.3 Mean Duration 20.2 0.0 0.0 0.00 42.5 37.3 39.8 Longest Duration 25.2 0.0 0.0 0.00 0.0 41.1 68.0 Respiratory Event Summary Total Supine ~Supine Right Left Prone REM NREM Apneas Count 4 N/A 4 0 3 1 0 4 Index 0.8 N/A 1 0.0 1.0 24 0 1 Hypopneas (4% Desat) Count 33 N/A 33 6 27 0 3 30 Index 6.7 N/A 7 3.4 8.6 0.0 4.9 6.9 Apneas & All Hypopneas Count 37 N/A 37 6 30 1 3 34 Index 7.5 N/A 7 3 10 24 4.9 7.8 Respiratory Events (Cleaning Team Member+All Hyp+RERA) Count 37 N/A 41 7 33 1 3 34 Index 8.3 N/A 8 4.0 10.5 24.0 4.9 8.8 Respiratory Related Arousal Count 7 N/A 8 2 5 1 1 7 Index 1.6 N/A 2 1 2 24 2 2 Snoring Analysis Supine Right Left Prone REM NREM Total Snore duration 1.0 min Snores count N/A 11 10 0 5 16 21 Snore mean duration 2.8 Sec Snores index N/A 6 3 0 8.1 3.7 4.2 TST with snoring (%) 0.3% Desaturation Event Summary: Minimum %SpO2 Event Count Mean/Min/Max Duration(sec.) Desaturation Index % Time In Bed > 90 47 38.9 / 17.5 / 59.3 11.9 59.2 86 - 90 8 33.1 / 20.5 / 50.5 3.0 40.3 81 - 85 0 N/A 0.0 0.3 76 - 80 2 10.9 / 7.0 / 14.8 127.4 0.2 71 - 75 0 N/A 0.0 0.0 66 - 70 0 N/A 0.0 0.0 61 - 65 0 N/A 0.0 0.0 56 - 60 0 N/A 0.0 0.0 51 - 55 0 N/A 0.0 0.0 < 50 0 N/A 0.0 0.0 Total REM NREM Awake <50% 0.0 min. 0.0 min. 0.0 min. 0.0 min. 51 - 60% 0.0 min. 0.0 min. 0.0 min. 0.0 min. 61 - 70% 0.0 min. 0.0 min. 0.0 min. 0.0 min. 71 - 80% 0.9 min. 0.0 min. 0.0 min. 0.9 min. 81 - 90% 162.3 min. 31.4 min. 125.4 min. 5.5 min. 91 - 100% 237.3 min. 5.6 min. 134.4 min. 97.3 min. Average 91 88 91 92 Minimum SpO2 79 84 86 79 Desaturation Event Index 7.5 3.2 9.2 5.3 # Desat. Events below 89% 15 1 12 2 Time(%) with Saturation below 89% 8.4 5.9 2.0 0.5 Time(min.) with Saturation below 89% 33.6 23.7 7.9 2.0 Time (mins) REM (mins) NREM (mins) % of TST SpO2 Below 90% 39 2 N37 28.1 SpO2 Below 88% 8 0 0 4 Heart Rate Analysis Min (bpm) Max (bpm) Average (bpm) Awake 32 205 63 NREM 34 74 59 REM 56 64 60 Overall 34 74 60 Supplemental O2 Values Minimum O2 level: None Value Start Time End Time [employer] Officer Comments Mr. Bkaer slept in the right, left, and supine positions. Frequent cardiac arrhythmia and PLMs noted. No bruxism noted. CPAP was initiated at +4 CMH2O room air and up-titrated to an optimal level of + 9 CMH2O Cflex 1 , which nearly eliminated all respiratory events and snoring. A medium [place] Simplus, was used during titration. Mr. Baker awoke to use the restroom two times during the night. Mr. Baker stated, that was not a good night. The final report will be interpreted and signed by a sleep physician. The completed physician report will then be placed in the patient medical record. Therapy Event: Therapy (cm H20) 4 5 6 7 8 9 Total Time at Pressure (min.) 48.5 121.6 68.6 132.2 19.4 19.7 TST at Pressure (min.) 36.5 86.1 57.1 86.7 16.9 13.7 # Periods 1 1 1 1 1 1 Sleep Onset (min.) 12.0 0.0 0.0 0.0 0.0 0.0 REM Onset (min.) N/A 23.0 47.9 0.0 N/A 8.2 Sleep Efficiency % 75 70 83 65 87 69 Wakefulness (%) 24.8 29.2 16.8 34.4 12.9 30.5 Wakefulness (min.) 12.0 35.5 11.5 45.5 2.5 6.0 NREM 1 (%) 18.6 11.1 10.9 26.9 10.3 12.7 NREM 1 (min.) 9.0 13.5 7.5 35.5 2.0 2.5 NREM 2 (%) 55.6 41.2 37.0 24.2 37.7 41.5 NREM 2 (min.) 27.0 50.1 25.4 32.0 7.3 8.2 NREM 3 (%) 1.0 11.5 5.8 10.5 39.1 0.0 NREM 3 (min.) 0.5 14.0 4.0 13.9 7.6 0.0 REM (%) 0.0 7.0 29.5 4.0 0.0 15.2 REM (min.) 0.0 8.5 20.2 5.3 0.0 3.0 # Arousals 5 7 8 8 1 3 Arousal Index 8.2 4.9 8.4 5.5 3.5 13.2 # Snore 1 2 10 7 1 0 Snore Index 1.6 1.4 10.5 4.8 3.5 0.0 AHI 4.9 4.9 6.3 6.2 28.4 17.6 AHI Supine N/A N/A N/A N/A N/A N/A AHI Non-Supine 4.9 4.9 6.3 6.2 28.4 17.6 NREM AHI 4.9 5.4 8.1 5.9 28.4 16.9 REM AHI N/A 0.0 3.0 11.3 N/A 20.0 RDI 6.6 6.3 7.4 6.2 28.4 17.6 # Obstructive 0 0 0 0 0 0 # Central Ap 0 0 2 0 1 1 # Mixed 0 0 0 0 0 0 # Hypopneas 3 7 4 9 7 3 RERAS 1 2 1 0 0 0 Total Respiratory Events 4 9 7 9 8 4 Time Below SpO2 89.00% (min.) 3.8 7.2 15.3 2.5 0.9 1.9 Mean NREM SpO2 (%) 90 91 90 91 91 91 Mean REM SpO2 (%) N/A 88 88 90 N/A 88 Mean Sleep SpO2 (%) 90 91 90 91 91 90 Min NREM SpO2 (%) 88 88 86 88 88 89 Min REM SpO2 (%) N/A 85 86 88 N/A 84 Position Supine (min.) 0.0 0.0 0.0 0.0 0.0 0.0 Position Non-supine (min.) 36.5 86.1 57.1 86.7 16.9 13.7 LM Index Sleep 28.0 37.6 62.0 21.5 17.7 4.4 LM Index NREM 28.0 33.2 73.2 16.2 17.7 0.0 LM Index REM N/A 77.6 41.6 102.1 N/A 20.0 Mean Heart Rate (bpm) 59 60 60 59 60 60 Min Heart Rate (bpm) 54 34 49 34 51 45
--- NOTE | 2017-07-19 11:03 | POLYSOMNOGRAPH REPORT ---
CLINICAL DATA: An 86-year-old male with a BMI of 31.7, referred by Dr. Moscoso. He had a home sleep apnea test done by Dr. Brennan Dominique which showed moderate sleep apnea with an CRISSY of 17.7. SLEEP ARCHITECTURE: Total recording time was 410.5 minutes. Total sleep period was 397 minutes. Total sleep time was 297 minutes divided between 260 minutes of non-REM sleep and 37 minutes of REM sleep. Sleep onset latency was 12 minutes. REM latency was 59.5 minutes. Sleep efficiency was 72%. Wake after sleep onset was elevated at 101 minutes. Sleep consisted of stage N1 24%, stage N2 51%, stage N3 13%, and REM 12%. AROUSAL DATA: 32 arousals recorded for an index of 6 per hour. PERIODIC LIMB MOVEMENT DATA: 167 limb movements during sleep were noted for an index of 33.7 per hour with an arousal index of 3.2 per hour. RESPIRATORY DATA: The AHI was 7.5. There were 4 central apneic episodes. The longest apneic episode was 25.2 seconds. There were 33 hypopneic episodes with a mean duration of 42.5 seconds. OXIMETRY DATA: Nocturnal hypoxemia was seen. Oxygen giovanna was 84% during REM. Mean saturation was 91%. Time below 88% was 8 minutes. EKG: Heart ranged from 34-74 beats per minute. Frequent PVCs were noted. AMMONIA BOX TENDER'S COMMENTS AND TREATMENT SUMMARY: The patient slept in the right, left, and supine positions. He used a medium G[employer] Simplus mask. He did not feel it was a very good night's sleep. He was titrated incrementally up to 9 cm water pressure. At the final pressure setting, he had an AHI of 17.6, which was not improved from baseline. He developed a significant number of hypopneic episodes and central apneic episodes within the last hour of sleep. IMPRESSION: Moderate sleep apnea/hypopnea with incomplete titration study. The best pressure was at 7 cm water pressure with an AHI was 6.2. RECOMMENDATIONS: The patient may benefit from the use of auto CPAP or sleep medicine consultation. Clinical correlation is needed. JAD
== END | disposition home or self-care (01) ==
LOC: C.NEUR 20:00
PROVIDERS: ATTEND Internal Medicine
DX: G47.30 Sleep apnea, unspecified (principal)

== ENCOUNTER → 2017-07-19 | Outpatient (CLI) | payer BC | END | disposition home or self-care (01) | LOC: C.LAB 14:01 | PROVIDERS: ATTEND Nurse Practitioner Adult Health | DX: N39.0 Urinary tract infection, site not specified (principal) ==

== ENCOUNTER → 2017-08-15 | Outpatient (CLI) | payer BC ==
[~2017-08-15] VITALS: Ht 188 cm; Wt 105.7 kg
[2017-08-15 13:28] VITALS: BP 129/87; PULSE 78; Ht 188 cm; Wt 105.7 kg
== END ==
LOC: C.NEUR 12:55
PROVIDERS: ATTEND Internal Medicine Pulmonary Disease
DX: G47.33 Obstructive sleep apnea (adult) (pediatric) (principal)

== ENCOUNTER → 2017-08-22 | Outpatient (CLI) | payer BC | END | disposition home or self-care (01) | LOC: C.LABFOXMH 14:55 | PROVIDERS: ATTEND Internal Medicine | DX: R30.0 Dysuria (principal) ==

== ENCOUNTER 2018-11-18 08:22 | Inpatient (IN) ==
--- NOTE | 2018-11-07 11:02 | PAT Medication Instructions ---
Medication Instructions Date of Service November 07, 2018 Home Medications Vitamin D3 1 tab PO QAM metoprolol succinate 25 mg PO QAM multivitamin 1 tab PO QAM rosuvastatin 5 mg PO QAM tamsulosin 0.4 mg PO QAM warfarin 7.5 mg PO UD ASK your prescriber and surgeon warfarin 7.5 mg PO UD DO NOT take the morning of surgery Vitamin D3 1 tab PO QAM multivitamin 1 tab PO QAM Take morning of surgery With a small sip of water, OTHERWISE NOTHING TO EAT OR DRINK AFTER MIDNIGHT: metoprolol succinate 25 mg PO QAM rosuvastatin 5 mg PO QAM tamsulosin 0.4 mg PO QAM Other Notes If you have any questions please call us at [phone] or [phone] or [phone] or [phone]
--- NOTE | 2018-11-10 11:36 | Anesthesiology Consultation ---
Date of Service November 10, 2018 Assessment & Plan (1) Encounter for pre-operative examination: - Cardio: 10/02/18: "No contraindication to orthopedic surgery from a CV perspective. Overall cardiovascular risk remains moderate due to hx of paroxysmal atrial dysarrhythmias and age." - Warfarin instructions: per surgeon/prescriber. Will check coags AM DOS. Chart Review Chart Review: Acceptable Risk for Surgery and Patient seen in Pre Admission Testing Teaching & Discussion Pre-Anesthesia Teaching/Discussion Notes: Instructed NPO after midnight before surgery,except medications with 15 cc of water. Medication instructions prov ided according to the PAT guidelines. History Surgery Operation Date: 11/18/18 10:40 Proposed Procedures p Right Total Knee Arthroplasty - Mario Hayes MD Height/Weight Height: 6 ft 2 in Weight: 108 kg Allergies Allergy/AdvReac Type Severity Reaction Status Date / Time amoxicillin Allergy Mild RASH Verified 11/04/18 12:23 levofloxacin AdvReac Intermediate Tachycardia Verified 11/04/18 12:23 Medications Home Medications Medication Instructions Recorded Confirmed Last Taken Vitamin D3 1 tab PO QAM 11/04/18 11/04/18 Unknown metoprolol succinate 25 mg PO QAM 11/04/18 11/04/18 Unknown multivitamin 1 tab PO QAM 11/04/18 11/04/18 Unknown rosuvastatin 5 mg PO QAM 11/04/18 11/04/18 Unknown tamsulosin 0.4 mg PO QAM 11/04/18 11/04/18 Unknown warfarin 7.5 mg PO UD 11/04/18 11/04/18 Unknown Past Medical History Medical History Atrial fibrillation Chronic kidney disease Diverticular disease Frequent PVCs "controlled" on beta ozzy Hard of hearing History of prostate cancer s/p radiation Osteoarthritis 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 right knee History of cardiac radiofrequency ablation 2/2 PSVT (2016) History of cataract surgery History of colonoscopy History of hemorrhoidectomy History of prostate biopsy History of tooth extraction Status post placement of cardiac pacemaker 2016 Past Anesthesia History No Hx of Anesthesia Complications and No Family Hx of Anesthesia Complications History of PONV No Hx of PONV and Hx of Motion Sickness ("sea sick" remotely) Social History Smoking Status: Never smoker Do You Dip or Chew Tobacco: No Hx Alcohol Use: Yes Alcohol type: wine alcohol intake frequency: a few times a week Hx Substance Use: No substance use type: does not use Review of Systems Patient denies chest pain, shortness of breath, cough, wheezing, palpitations. Physical Exam Vital Signs VITALS BP 121/84 P 57 TEMP 97.7 SP02 95%RA RESP 18 PHYSICAL Full neck and c-spine range of motion. Full TMJ range of motion. TMD 4 finger breaths Mallampati Score 2 Dentition: upper front left chipped, missing molars, permanent implants/crowns on sides/molars Lungs: faint lower lung base crackles (no pulmonary complaints) Cardiac: regular rate and rhythm, no murmurs noted, distant heart sounds Spine: normal Carotid arteries: negative bruit Extremities: no edema Testing Laboratory Results 11/10/18 11:50 11/10/18 11:50 PT 23.8 Seconds (9.0-12.0) H 11/10/18 11:50 INR 2.5 (0.9-1.1) H 11/10/18 11:50 APTT 38.2 Seconds (21.0-31.0) H 11/10/18 11:50 Blood Type AB Positive 11/10/18 11:50 Antibody Screen NEGATIVE 11/10/18 11:50 Electrocardiogram Date: 08/15/18 A-paced rhythm at 65bpm. Chest X-Ray Date: 11/10/18 Right subclavian pacer of these in the right atrium and right ventricular apex. Atherosclerosis of the aortic arch. Cardiac silhouette mildly enlarged. Lungs and pleural spaces clear. Cardiomegaly. Echocardiogram Date: 10/01/18 LVEF 55-59%. No RWMA. SR with frequent PVC's. Mildly increased cLV wall thickness. Mild AV sclerosis. Mild MR/TR. PASP 38mmhg (mildly elevated). Grade I DD. Stress Test Date: 09/02/18 Type: nuclear Lexiscan nuclear cardiac stress test negative for ischemia. LVEF 55%. Inferior perfusion defect consistent with soft tissue artifact. Gated SPECT images reveals normal myocardial thickening and wall motion. 65% MPHR. Other Testing Pacer check: 09/17/18: Medtronic. AP 67%. RVP 6.6%. Mode AAIR <=> DDDR. Battery estimated longevity 7.5 years. "Normal dual chamber pacemaker function."
--- NOTE | 2018-11-10 12:11 | XRay Report ---
XR chest Pre-admission PA/Lat CLINICAL HISTORY: 87 years-old Male presenting with preoperative evaluation. TECHNIQUE: PA and lateral views of the chest were obtained. COMPARISON: 01/22/2017. FINDINGS: Right subclavian pacer of these in the right atrium and right ventricular apex. Atherosclerosis of th e aortic arch. Cardiac silhouette mildly enlarged. Lungs and pleural spaces clear. Degenerative lipscomb es of the thoracic spine. Upper abdomen normal. IMPRESSION: 1. Cardiomegaly. No other convincing evidence of acute cardiopulmonary disease. Electronically signed by: Jayson Modi M.D. 11/10/2018 12:09 PM
[2018-11-10 13:38] LABS: Basophils # (auto) 0.05 K/uL (0-0.2); Basophils % (auto) 0.6 %; Eosinophils # (auto) 0.18 K/uL (0-0.5); Eosinophils % (auto) 2.2 %; Hematocrit (blood only) 43.1 % (42-52); Hemoglobin 14.5 g/dL (14.0-18.0); Immature Granulocytes # (auto) 0.02 K/uL (0.00-0.02); Immature Granulocytes % (auto) 0.2 %; Lymphocytes # (auto) 1.31 K/uL (1.2-3.4); Lymphocytes % (auto) 16.3 %; Mean Corpuscular Hgb Conc 33.6 g/dL (32-36); Mean Corpuscular Volume 88.5 fL (80-100); Mean Platelet Volume 11.9 fL (7.4-10.4); Monocytes # (auto) 0.68 K/uL (0.11-0.59); Monocytes % (auto) 8.5 %; Neutrophils # (auto) 5.78 K/uL (1.4-6.5); Neutrophils % (auto) 72.2 %; Platelet Count 154 K/uL (130-400); RDW Coefficient of Variation 13.7 % (11.5-14.5); RDW Standard Deviation 44.6 fL (36.4-46.3); Red Blood Count 4.87 M/uL (4.7-6.1); White Blood Count 8.02 K/uL (4.8-10.8)
[2018-11-10 13:55] LABS: INR 2.5 (0.9-1.1); Partial Thromboplastin Ratio 1.4; Partial Thromboplastin Time 38.2 Seconds (21.0-31.0); Prothrombin Time 23.8 Seconds (9.0-12.0)
[2018-11-10 14:26] LABS: BUN Creatinine Ratio 12.5 (10-20); Calcium 9.1 mg/dl (8.5-10.1); Creatinine Clr Calc Pharmacy 48.3 ml/min; Est GFR (African American) 51.5; Est GFR (Non-African American) 44.5; Potassium 4.4 mmol/L (3.5-5.1)
--- NOTE | 2018-11-14 11:09 | History and Physical Report ---
DATE OF ADMISSION: 11/18/2018 CHIEF COMPLAINT: Bilateral knee pain, right side greater than left. 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 He has got a long history of bilateral knee pain and discomfort that has just gotten worse and more debilitating over time. He has been through extensive conservative treatment including medicines as well as injections, which really have not helped much over time. He has become more disabled by his pain. The right knee hurts more than left. It is global pain. He can walk about 2 blocks and that is about it. He has difficulty going up and down steps. He would like to proceed with surgical treatment. PAST MEDICAL HISTORY: Significant for: 1. Paroxysmal atrial fibrillation, status post ablation, on current Coumadin with a recent cardiac clearance. 2. Arthritis. 3. History of prostate cancer, status post treatment without recurrence. PAST SURGICAL HISTORY: Previous surgeries include: 1. Pacemaker placement. 2. Cardiac ablation. 3. Cataract surgery. 4. Prostate biopsy. 5. Herniorrhaphy. 6. Toe surgery for infection. ALLERGIES: LEVAQUIN AND AMOXICILLIN. He states he takes penicillin without difficulties. CURRENT MEDICINES: Include: 1. Coumadin. 2. Metoprolol. 3. Tamsulosin. 4. Lovastatin. SOCIAL HISTORY: An 87-year-old male. Very active. Drinks about 5 drinks per week. Does not smoke. FAMILY HISTORY: Noncontributory. REVIEW OF SYSTEMS: Significant for paroxysmal atrial fibrillation with a recent echo showing normal LV function. He denies any chest pain or shortness of breath. No history of DVT or PE. PHYSICAL EXAMINATION: GENERAL: Reveals a pleasant, healthy-appearing elderly male, looks younger than his stated age. HEENT: Benign. NECK: Supple, no lymphadenopathy. LUNGS: Clear to auscultation. HEART: Has an irregularly irregular rhythm. ABDOMEN: Soft, nontender, nondistended. EXTREMITIES: Grossly neurovascularly intact except as follows: Examination of both knees reveals the patient ambulates independently. Walks with varus alignment to both knees with a varus thrust on both sides. He has got bony hypertrophy medially in both knees. Range of motion is symmetric with about 10 degrees short of full extension, about 115 degrees of flexion bilaterally. He has got no pain with hip motion. X-RAYS: X-rays of both knees reveal advanced bilateral knee DJD. He has got complete loss of medial joint space in both knees. He has got subchondral sclerosis and osteophytes in all 3 compartments, most severe in the medial side. 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 He has failed conservative care. It is affecting his quality of life and he would like to have his right knee replaced. He does have this history of paroxysmal atrial fibrillation, had a recent echo which showed normal LV function. He has been cleared for surgery. PLAN: We are going to take him to the operating room and do right total knee replacement. The risks and benefits of this procedure were explained to the patient including but not limited to DVT, PE, , infection, neurological injury, vascular injury, bleeding problem, pain, limited range of motion, stiffness, failure to relieve symptoms, incomplete relief of symptoms, need for further surgery in future, fracture, leg length inequality, nerve palsy, persistent pain, incomplete relief of symptoms, etc. The patient understands and desires to proceed. Informed consent was obtained. He does know to stop his Coumadin 5 days preoperatively. We will get a stat PT and INR the morning of surgery. He will take his metoprolol the morning of surgery. His restaurant lead is Dr. Kurtz. We can have the cardiology team follow him in the hospital as needed. He is planning to be discharged likely to home with some home health. We will start him on his Coumadin immediately postoperatively. Not planning on using the Lovenox bridge at this time.
[~2018-11-18 08:22] MED LIST changes: +ACETAMINOPHEN 500 MG TAB PO SCH; +BUPIVACAINE 0.5 % 5 MG/1 ML PF 10ML VIAL ONE; +BUPIVACAINE LIPOSOME/PF 266 MG, BUPIVACAINE/EPINEPHRINE 50 ML, SODIUM CHLORIDE 0.9% 30 ... INFIL SCH; +CEFAZOLIN 2000MG 2,000 MG/15 ML SYR IV SCH; +EPINEPHrine INJ 1 MG/ML AMP ONE; +FAMOTIDINE 20 MG TAB PO SCH; +GABAPENTIN 300 MG CAP PO SCH; +LIDOCAINE HCL 2% 2 ML VIAL/AMP(20MG/ML) INFIL ONE; +LR 500ML BOLUS, THEN 15ML/HR IV SCH; +LR 60ML/HR IV SCH; +METOCLOPRAMIDE HCL 10 MG TABLET PO SCH; -MULT-506 PO; -PANT1TAB3 PO; +PROPOFOL IV EMULSION 10 MG/ML 20 ML VIAL IV ONE; +ROPIVACAINE 0.5% 5 MG/ML 30 ML VIAL ONE; -ROSU5TAB PO; -TAMS0.4C38 PO; -TPRSR25 PO; +TRANEXAMIC ACID 1,000 MG **IV Intra-op IV SCH; -WARF7.5T4 PO
--- NOTE | 2018-11-18 08:51 | History & Physical Bridge Note ---
Date of Service November 18, 2018 History & Physical Bridge Note I have examined the patient, reviewed the History & Physical and in the interval since the performance of the History & Physical I have noted the following changes of clinical significance: no changes noted
[2018-11-18 09:17] LABS: INR 1.1 (0.9-1.1); Partial Thromboplastin Time 26.8 Seconds (21.0-31.0); Prothrombin Time 11.4 Seconds (9.0-12.0)
[2018-11-18] MEDS ORDERED: fentaNYL citrate 100 MCG/2 ML VIAL ONE (09:30)
[2018-11-18] MEDS ORDERED: MIDAZOLAM HCL 1 MG/ML 2ML VIAL ONE (09:30)
[2018-11-18] MEDS ORDERED: ONDANSETRON INJ 2 MG/ML 2 ML VIAL ONE (09:58)
[2018-11-18] MEDS ORDERED: PROPOFOL IV EMULSION 10 MG/ML 20 ML VIAL IV ONE (09:58)
[2018-11-18] MEDS ORDERED: BUPIVACAINE LIPOSOME 1.3% 266 MG/20 ML VIAL ONE (11:29)
[2018-11-18] MEDS ORDERED: SODIUM CHLORIDE 0.9% PF 50 ML VIAL ONE (11:29)
[2018-11-18] MEDS ORDERED: BACITRACIN INJ 50,000 UNIT VIAL ONE (11:29)
[2018-11-18] MEDS ORDERED: BUPIVACAINE 0.25% 30 ML VIAL ONE (11:30)
[2018-11-18] MEDS ORDERED: EPINEPHrine INJ 1 MG/ML AMP ONE (11:30)
[2018-11-18] MEDS ORDERED: ePHEDrine sulfate 50 MG/ML AMP ONE (12:09)
--- NOTE | 2018-11-18 13:23 | Post Operative Brief Note ---
PG Immediate Post Op with CF Date of Surgery November 18, 2018 Pre & Post Diagnosis Operation Date: 11/18/18 10:40 Pre-Op Diagnosis: Right Knee Advanced Degenerative Joint Disease Post-Op Diagnosis: Right Knee Advanced Degenerative Joint Disease Procedure Operation Date: 11/18/18 10:40 Actual Procedures p Right Total Knee Arthroplasty(Right) - Mario Hayes MD Surgeon Mario Hayes MD Director Part Scottie, PAC Estimated Blood Loss 50 Findings Consistent with Post-Op Diagnosis Fluids 1500 cc Specimens Specimen Description: A. Right Knee Bone and Tissue Drains Gómez Catheter (A 16 [place] gómez catheter was inserted by RYAN Cardoza, without difficulty, clear yellow urine obtained, output to be monitored by Anesthesia.) Anesthesia Type Spinal MAC Complications none Disposition Accompanied Patient To Recovery: No Disposition: Recovery Room
--- NOTE | 2018-11-18 13:48 | XRay Report ---
XR knee RT 2V routine CLINICAL HISTORY: Surgical Post Op joint replacement COMPARISON: None. DISCUSSION: Anatomic alignment posttotal right knee arthroplasty. Could contact between prosthetic an d underlying bone. IMPRESSION: Anatomic alignment posttotal right knee arthroplasty. The above report was generated using voice recognition software. It may contain grammatical, syntax or spelling errors. Electronically signed by: Loyd Wiggins M.D. 11/18/2018 1:46 PM
--- NOTE | 2018-11-18 14:37 | Anesthesiology Progress Note ---
Date of Service November 18, 2018 Anesthesia Post Procedure Vital Signs Vital Signs: Temp Pulse Pulse Resp BP BP Pulse Ox 11/18/18 14:25 60 16 121/71 96 11/18/18 14:15 36.8 C 65 12 112/70 96 11/18/18 14:05 61 18 118/74 95 11/18/18 13:55 61 21 122/71 95 11/18/18 13:45 60 15 116/66 95 11/18/18 13:35 61 15 109/63 95 11/18/18 13:28 36.6 C 62 16 103/63 94 11/18/18 08:53 36.7 C 79 16 149/94 H 95 Transfer of Care Handoff Completed per policy Notes Mental Status: alert / awake / arousable and participated in evaluation Patient Amnestic to Procedure: Yes Nausea / Vomiting: adequately controlled Pain: adequately controlled Airway Patency, RR, SpO2: stable & adequate BP & HR: stable & adequate Hydration State: stable & adequate Neuraxial Anesthesia: was administered and sensory block is resolving Anesthetic Complications: no major complications apparent and Pt Satisfied with anesthetic care Notes: The patient is doing well in recovery with no complaints. I spoke to [employer] and they stated that hte patient's pacemaker does not need interrog ation postoperatively.
[2018-11-18] MEDS ORDERED: BISACODYL 10 MG SUPP PR PRN (14:50)
[2018-11-18] MEDS ORDERED: ALUMINUM/MAGNESIUM SUSP 30 ML UDC PO PRN (14:50)
[2018-11-18] MEDS ORDERED: HYDROmorphone INJ 0.5 MG/0.5 ML SYR IV PRN (14:50)
[2018-11-18] MEDS ORDERED: ONDANSETRON INJ 2 MG/ML 2 ML VIAL IV PRN (14:50)
[2018-11-18] MEDS ORDERED: MAGNESIUM HYDROXIDE SUSP 30 ML UDC PO PRN (14:50)
[2018-11-18] MEDS ORDERED: NALOXONE HCL 0.4 MG/1 ML VIAL/CARP IV PRN (14:50)
[2018-11-18] MEDS ORDERED: METOCLOPRAMIDE HCL INJ 5 MG/ML 2 ML VIAL IV PRN (14:50)
[2018-11-18] MEDS ORDERED: TAMSULOSIN HCL 0.4 MG CAP PO PRN (14:50)
[2018-11-18] MEDS ORDERED: WARFARIN SOD 2.5 MG TAB PO ONE (16:00)
[2018-11-18] MEDS ORDERED: WARFARIN SOD 10 MG TAB PO ONE (16:00)
[2018-11-18] MEDS: SODIUM CHLORIDE 0.9% 1000ML 1,000 ML IV SCH (16:04)
[2018-11-18] MEDS: ACETAMINOPHEN 500 MG TAB PO SCH (17:48)
[2018-11-18] MEDS: ASCORBIC ACID 500 MG TAB PO SCH (17:52)
[2018-11-18] MEDS: FERROUS GLUCONATE 324 MG TAB PO SCH (17:52)
--- NOTE | 2018-11-18 19:15 | Progress Note ---
DATE: 11/18/2018 SUBJECTIVE: An 88-year-old gentleman postop from a right knee replacement. He is doing well. Really not having much pain at all. No chest pain or shortness of breath. Not feeling dizzy or lightheaded. OBJECTIVE: VITAL SIGNS: Temperature is 36.3. Vital signs stable. GENERAL: Shows a pleasant elderly male. He is sitting up in bed and talking to the nurse. He looks comfortable. EXTREMITIES: Examination of the right leg reveals the leg to be well aligned. Dressing is clean, dry, and intact. He can do a good straight leg raise. He can dorsiflex and plantarflex his foot appropriately. He is neurologically intact. X-RAYS: X-rays of the right knee from recovery room were reviewed. It shows a right cemented posterior stabilized total knee arthroplasty. Components looked to be in good position. No signs of problems. ASSESSMENT: An 88-year-old gentleman with underlying history of paroxysmal atrial fibrillation, postoperative from a right knee replacement, doing well. His pain is controlled. He is neurologically intact. PLAN: 1. DVT prophylaxis including thigh-high TEDs, SCDs, and he is going to go back on his Coumadin starting today at 12.5 mg dose and likely 10 mg tomorrow. 2. PT/OT. Weight bear as tolerated. Right total knee protocol. 3. Pain control, doing well with current pain regimen. 4. IV antibiotics x24 hours. 5. Disposition: Plan to discharge to rehab at [facility] once medically stable and recovered.
[2018-11-18] MEDS: CEFAZOLIN 2000MG 2,000 MG/15 ML SYR IV SCH (20:24)
[2018-11-18] MEDS: SENNA 8.6 MG TAB PO SCH (20:24)
[2018-11-18] MEDS: DOCUSATE SODIUM 100 MG CAP PO SCH (20:24)
--- NOTE | 2018-11-18 22:17 | Operative Report ---
DATE OF OPERATION: 11/18/2018 SURGEON: Mario Hayes MD COMPLIANCE VICE PRESIDENT: RYAN Boswell PREOPERATIVE DIAGNOSIS: Right knee degenerative joint disease. POSTOPERATIVE DIAGNOSIS: Right knee degenerative joint disease. PROCEDURE PERFORMED: Right cemented posterior stabilized total knee arthroplasty. COMPLICATIONS: None. ESTIMATED BLOOD LOSS: 50 mL. FLUID REPLACEMENT: 1500 mL crystalloid fluid replacement. TOURNIQUET TIME: 57 minutes at 300 mmHg. ANESTHESIA: Spinal with adductor canal block. DRAINS: None. SPECIMENS: Right knee sent for pathology. OPERATIVE INDICATIONS: The patient is an 88-year-old very active gentleman who has had a long history of knee problems. He has been through extensive conservative care which was not helping anymore. X-rays reveal advanced bilateral knee DJD. The right side was more symptomatic than the left. He elected to proceed with total knee arthroplasty. OPERATIVE FINDINGS: Operative findings were advanced right knee DJD. Extensive grade 4 [id number] and eburnation changes of the medial femoral condyle and medial tibial plateau. He has fixed varus deformity to his knee with about a 10-degree flexion contracture. He had osteophytes primarily in the medial compartment. OPERATIVE IMPLANTS: Operative implants consisted of: 1. Biomet Vanguard size 75 right posterior stabilized femoral component. 2. Biomet size 79 tibial tray. 3. A 10 mm posterior stabilized polyethylene insert. 4. A 34 x 8.5 all poly patella. OPERATIVE PROCEDURE: The patient was taken to the operating room, identified and placed on the operating table in supine position. All contact areas were appropriately padded. IV antibiotics provided by anesthesia team. A spinal anesthetic and adductor canal block had been provided in the holding area. Boyd catheter was placed in sterile fashion. Right thigh tourniquet was then placed. The right lower extremity was then prepped and draped in usual sterile fashion. The right leg was elevated and exsanguinated with an Esmarch and tourniquet was placed at 300 mmHg. An anterior approach of the right knee was then performed through a longitudinal incision centered over the patella. Sharp dissection was carried through subcutaneous tissue down to the level of the extensor mechanism. Medial parapatellar arthrotomy incision was made. Some subperiosteal dissection was carried out medially. The fat pad resected from beneath the patellar tendon. The lateral patellofemoral ligament was released. The patella was everted and knee was flexed. The osteophytes were taken off the distal femur. The ACL and PCL were then released from the distal femur and the tibia subluxated anteriorly. The external tibial alignment jig was then placed in the anterior face of the tibia and adjusted 16 mm medially. Proximal tibial cut was made to remove about a millimeter of bone from most deficient aspect of the medial tibial plateau. Tibia was sized to a size 79. Some osteophytes were taken off posteriorly medially. Attention was then drawn to the femur. The distal femur was entered with a sharp drill bit. Intramedullary canal was suctioned. A right 6 degree valgus cutting guide was placed. Distal femoral cutting block was pinned in place. Distal femoral cut was made to take an additional 3 mm of bone off the distal femur. The femur was then sized to a size 75. I downsized it slightly. The AP cutting block was pinned parallel to the epicondylar axis, which was 4 degrees of external rotation. The anterior cut, anterior chamfer cut, posterior cut, posterior chamfer cuts were made. Box cutting guide was placed and adjusted slightly lateral and the box cut was made. The knee was flexed. The remnants of the medial and lateral menisci were excised. The osteophytes were taken off the posterior aspect of the femur. Trial femoral component was placed. The tibial tray was pinned in maximum external rotation and drill and stem punch were used to create defect in proximal tibia for the tibial tray. The knee was then trialed and the 10 mm insert fit most appropriately. Attention was then drawn to patella. The patella was cleaned of all soft tissues. Patella thickness measured 24 mm in thickness, was cut down to 15. It was sized to a size 34 patella. Lug holes were drilled for 34 patella. Lateral osteophyte was removed. Patella button was placed. Knee was taken through range of motion and the patella tracked nicely with no thumbs test. Attention was then drawn toward placement of permanent components. All trial components were removed. Bone plug was placed in the distal femur to limit blood loss. A double batch of Palacos G cement was mixed. A Biomet Vanguard size 75 right posterior stabilized femoral component, size 79 tibial tray, a 10 mm posterior stabilized polyethylene insert, and a 34 x 8.5 all poly patella then cemented in place. Knee was brought into full extension until cement hardened. A final cement check was then performed. Pericapsular tissues were injected with a total of 100 mL of combination of 20 mL of Exparel, 30 mL of normal saline, 50 mL of 0.25% Marcaine with epinephrine. The patient did receive 1 gram of tranexamic acid. The tourniquet was then let down for final tourniquet time of 57 minutes. Hemostasis was assured with use of electrocautery. Extensor mechanism was closed with combination of #1 PDS suture and #1 Vicryl suture in a [id number] fashion. Extensor mechanism was checked and found to be intact and subcutaneous tissue was then closed with #2 Dexon suture in a buried interrupted fashion. Skin was closed with skin palak. Leg was then cleaned, dried and a sterile dressing of Xeroform, 4 x 4, sterile cast padding and Roby bandage were applied. The patient then transferred to the recovery room in stable condition. The patient tolerated the procedure well with no complication. All needle and sponge counts were correct at the end of the operation. I attest to the content of the Intraoperative Record and any orders documented therein. Any exception s are noted below.
[2018-11-19] MEDS: SODIUM CHLORIDE 0.9% 1000ML 1,000 ML IV SCH (02:05)
[2018-11-19] MEDS: ACETAMINOPHEN 500 MG TAB PO SCH ×3 (02:05→17:59)
[2018-11-19] MEDS: CEFAZOLIN 2000MG 2,000 MG/15 ML SYR IV SCH (04:31)
[2018-11-19 06:20] LABS: Hematocrit (blood only) 34.6 % (42-52); Hemoglobin 11.7 g/dL (14.0-18.0); Mean Corpuscular Hgb Conc 33.8 g/dL (32-36); Mean Corpuscular Volume 88.3 fL (80-100); Mean Platelet Volume 10.8 fL (7.4-10.4); Platelet Count 126 K/uL (130-400); RDW Coefficient of Variation 13.7 % (11.5-14.5); RDW Standard Deviation 44.1 fL (36.4-46.3); Red Blood Count 3.92 M/uL (4.7-6.1); White Blood Count 10.54 K/uL (4.8-10.8)
[2018-11-19 06:39] LABS: INR 1.3 (0.9-1.1); Prothrombin Time 12.7 Seconds (9.0-12.0)
[2018-11-19 06:46] LABS: BUN Creatinine Ratio 11.7 (10-20); Calcium 7.8 mg/dl (8.5-10.1); Creatinine Clr Calc Pharmacy 43.1 ml/min; Est GFR (African American) 45.6; Est GFR (Non-African American) 39.4; Potassium 4.3 mmol/L (3.5-5.1)
--- NOTE | 2018-11-19 07:29 | Anesthesiology Progress Note ---
Date of Service November 19, 2018 Anesthesia Post Procedure Vital Signs Vital Signs: Temp Pulse Pulse Pulse Resp BP BP 11/19/18 03:57 37.7 C H 76 18 109/62 11/18/18 23:49 37 C 73 18 138/68 11/18/18 19:07 36.5 C 63 16 125/72 11/18/18 17:33 36.3 C L 61 18 137/80 11/18/18 16:44 60 18 135/87 11/18/18 15:55 61 18 136/69 11/18/18 15:18 36.3 C L 62 16 133/83 11/18/18 14:35 36.4 C L 60 18 126/76 11/18/18 14:25 60 16 121/71 11/18/18 14:15 36.8 C 65 12 112/70 11/18/18 14:05 61 18 118/74 11/18/18 13:55 61 21 122/71 11/18/18 13:45 60 15 116/66 11/18/18 13:35 61 15 109/63 11/18/18 13:28 36.6 C 62 16 103/63 11/18/18 08:53 36.7 C 79 16 149/94 H Pulse Ox 11/19/18 03:57 93 11/18/18 23:49 91 11/18/18 19:07 94 11/18/18 17:33 95 11/18/18 16:44 96 11/18/18 15:55 99 11/18/18 15:18 98 11/18/18 14:35 97 11/18/18 14:25 96 11/18/18 14:15 96 11/18/18 14:05 95 11/18/18 13:55 95 11/18/18 13:45 95 11/18/18 13:35 95 11/18/18 13:28 94 11/18/18 08:53 95 Notes Mental Status: alert / awake / arousable and participated in evaluation Patient Amnestic to Procedure: Yes Nausea / Vomiting: adequately controlled Pain: adequately controlled Airway Patency, RR, SpO2: stable & adequate BP & HR: stable & adequate Hydration State: stable & adequate Neuraxial Anesthesia: was administered and sensory block resolved Anesthetic Complications: no major complications apparent and Pt Satisfied with anesthetic care
[2018-11-19] MEDS: MULTIVITAMIN TAB PO SCH (08:37)
[2018-11-19] MEDS: TRAMADOL HCL 50 MG TABLET PO PRN (08:37)
[2018-11-19] MEDS: TAMSULOSIN HCL 0.4 MG CAP PO SCH (08:37)
[2018-11-19] MEDS: ROSUVASTATIN CALCIUM 5 MG TAB PO SCH (08:38)
[2018-11-19] MEDS: METOPROLOL SUCC 25MG EXT REL TAB PO SCH (08:38)
[2018-11-19] MEDS: ASCORBIC ACID 500 MG TAB PO SCH ×2 (08:38→17:57)
[2018-11-19] MEDS: FERROUS GLUCONATE 324 MG TAB PO SCH ×2 (08:38→17:57)
[2018-11-19] MEDS: DOCUSATE SODIUM 100 MG CAP PO SCH ×2 (08:38→20:59)
[2018-11-19] MEDS ORDERED: MULTIVITAMIN TAB PO SCH (09:00)
--- NOTE | 2018-11-19 15:14 | Progress Note ---
DATE: 11/19/2018 SUBJECTIVE: An 88-year-old gentleman postop day 2 from right knee replacement. He is doing pretty well. Having quite a bit of pain with therapy, but otherwise doing okay. No chest pain or shortness of breath. Not feeling dizzy or lightheaded. OBJECTIVE: VITAL SIGNS: Temperature 37.5. Vital signs stable. GENERAL: Physical examination shows a pleasant elderly male. He is lying in bed, looks pretty comfortable currently. EXTREMITIES: Examination of the right leg reveals the leg to be well aligned. Dressing is clean, dry, and intact. He can dorsiflex and plantarflex his foot appropriately. He is neurologically intact. LABORATORY DATA: Hemoglobin 11.7. Hematocrit 34.6. Electrolytes are stable. Creatinine just slightly elevated, which is his baseline at 1.55. His INR is 1.3. ASSESSMENT: An 88-year-old gentleman with history of atrial fibrillation postop day 1 from right knee replacement, doing pretty well. Pain is reasonably well controlled. He is mildly anemic, but asymptomatic. Renal function is stable. PLAN: 1. DVT prophylaxis including thigh-high TEDs, SCDs, and Coumadin. We will likely give him 10 mg of Coumadin today. 2. PT/OT. Weight bear as tolerated. Right total knee protocol. 3. Pain control, doing okay with current pain regimen. 4. Disposition: Plan to discharge to [facility] once medically stable and recovered.
[2018-11-19] MEDS ORDERED: WARFARIN SOD 10 MG TAB PO ONE (16:00)
[2018-11-19] MEDS: SENNA 8.6 MG TAB PO SCH (20:59)
[2018-11-20] MEDS: ACETAMINOPHEN 500 MG TAB PO SCH ×2 (02:05→09:15)
[2018-11-20 07:43] LABS: Prothrombin Time 19.7 Seconds (9.0-12.0)
[2018-11-20] MEDS: TRAMADOL HCL 50 MG TABLET PO PRN ×2 (07:46→15:06)
[2018-11-20] MEDS: FERROUS GLUCONATE 324 MG TAB PO SCH (07:47)
[2018-11-20] MEDS: ASCORBIC ACID 500 MG TAB PO SCH (07:47)
--- NOTE | 2018-11-20 08:15 | Progress Note ---
DATE: 11/20/2018 SUBJECTIVE: An 88-year-old gentleman postop day 2 from a right knee replacement. He is doing pretty well functionally. Still having quite a bit of knee pain and discomfort. No other complaints. No chest pain or shortness of breath. Not feeling dizzy or lightheaded. OBJECTIVE: VITAL SIGNS: Temperature is 37.3. Vital signs stable. GENERAL: Physical examination shows a pleasant elderly male. He was in the bathroom when I visited him this morning. EXTREMITIES: Examination of the right leg reveals the incision to be clean, dry and intact. Fairly mild swelling. No significant drainage. Calf is soft and supple. He is neurologically intact. LABORATORY DATA: INR pending. ASSESSMENT: An 88-year-old gentleman postop day 2 from right knee replacement, doing well. He has got a history of atrial fibrillation and on Coumadin. His pain has been reasonably controlled. PLAN: 1. DVT prophylaxis including thigh-high TEDs, SCDs, and Coumadin. We will resume his normal Coumadin dose upon discharge. 2. PT/OT. Weight bear as tolerated. Right total knee protocol. 3. Pain control, doing well with current pain regimen. 4. Disposition: Plan to discharge to [facility] once medically stable and bed available.
[2018-11-20] MEDS: DOCUSATE SODIUM 100 MG CAP PO SCH (09:14)
[2018-11-20] MEDS: ROSUVASTATIN CALCIUM 5 MG TAB PO SCH (09:14)
[2018-11-20] MEDS: TAMSULOSIN HCL 0.4 MG CAP PO SCH (09:14)
[2018-11-20] MEDS: MULTIVITAMIN TAB PO SCH (09:15)
[2018-11-20] MEDS: METOPROLOL SUCC 25MG EXT REL TAB PO SCH (09:20)
[2018-11-20] MEDS ORDERED: WARFARIN SOD 5 MG TAB PO ONE (16:00)
--- NOTE | 2018-11-25 15:33 | Discharge Summary ---
ADMITTING PHYSICIAN AND SURGEON: Dr. Mario Hayes. ADMITTING DIAGNOSIS: Right knee degenerative joint disease. SURGERY PERFORMED: Right total knee arthroplasty. SECONDARY DIAGNOSES: Paroxysmal atrial fibrillation with a history of ablation, arthritis, prostate cancer. CONSULTS: None obtained. HISTORY AND PHYSICAL EXAMINATION: Well documented in the patient's chart. HOSPITAL COURSE: The patient was admitted on 11/18/2018, underwent total knee arthroplasty, tolerated the procedure well. There were no complications. He was transferred to the PACU postoperatively and later to the orthopedic floor for further care. He was given Ancef for antibiotic prophylaxis, EMIGDIO stockings, SCDs and warfarin for DVT prophylaxis. Hemoglobin, hematocrit and vital signs were monitored during his hospital stay and remained stable, did not require any blood transfusions. There were no complications. By postoperative day 2, he was tolerating a regular diet, pain was controlled with oral pain medicine. He was participating in physical therapy. On postop day 2, he was transferred to half-way facility. He was given printed discharge instructions as well as new prescriptions for extra-strength Tylenol and tramadol. Continue his home medicines including warfarin, continue physical therapy, weightbearing as tolerated, EMIGDIO stockings. Follow up approximately 2 weeks postop or sooner if there are any problems or concerns.
== END 2018-11-20 15:20 | DRG 470 ==
LOC: ASU 08:22 → 3E 13:29

== ENCOUNTER 2019-12-07 05:12 | Observation (INO) ==
--- NOTE | 2019-11-06 16:07 | PAT Medication Instructions ---
Medication Instructions Date of Service November 06, 2019 Home Medications Vitamin D3 1 tab PO QAM metoprolol succinate 25 mg PO QAM multivitamin 1 tab PO QAM rosuvastatin 5 mg PO QAM aspirin 81 mg PO QAM clindamycin HCl 1 dose PO UD PRN Continue as directed clindamycin HCl 1 dose PO UD PRN DO NOT take the morning of surgery Vitamin D3 1 tab PO QAM multivitamin 1 tab PO QAM Take morning of surgery With a small sip of water, OTHERWISE NOTHING TO EAT OR DRINK AFTER MIDNIGHT: metoprolol succinate 25 mg PO QAM rosuvastatin 5 mg PO QAM aspirin 81 mg PO QAM Other Notes If you have any questions please call us at [phone] or [phone] or [phone] or [phone]
--- NOTE | 2019-11-09 11:21 | Anesthesiology Consultation ---
Date of Service November 09, 2019 Assessment & Plan (1) Encounter for pre-operative examination: COVID Status: As of 11/08 assessment, patient denies travel to endemic area, known exposure/sick contacts, or symptoms of COVID19. Patient instructed that they and their household members must follow strict social distancing guidelines, wear a mask in public and avoid travel for 14 days prior to surgery. Patient is a resident at [facility] in [place], residing in the [facility] (independent living), and eating all meals at home. Preoperative COVID19 testing to be completed prior to surgery per surgeon's arrangements. Patient made aware to self-isolate as much as possible between COVID testing and surgery. Cardiology office note 08/26/19: "Risk versus benefit of anticoagulation discussed with patient at length. He is a significant fall risk due to balance dysfunction. No evidence of recurrent atrial fibrillation for 2 years. Recommend discontinuation of Coumadin. He will resume low-dose aspirin, 81 mg daily. Fall precautions advised. I will continue to monitor for recurrent atrial fibrillation via pacemaker interrogations every 3 months. Other cardiovascular medications will be continued as listed above the reviewed and updated today." Chart Review Chart Review: Acceptable Risk for Surgery and Patient seen in Pre Admission Testing Teaching & Discussion Instructed NPO after midnight before surgery, except medications with 15 cc of water. Medication instructions provided according to the PAT guidelines. History Surgery Operation Date: 12/07/19 09:20 Proposed Procedures p Left Total Knee Replacement - Mario Hayes MD Height/Weight Height: 6 ft 2 in Weight: 108.4 kg Allergies Allergy/AdvReac Type Severity Reaction Status Date / Time amoxicillin Allergy Mild RASH Verified 11/04/19 09:07 levofloxacin AdvReac Intermediate Tachycardia Verified 11/04/19 09:07 Medications Home Medications Medication Instructions Recorded Confirmed Last Taken Vitamin D3 1 tab PO QAM 11/04/18 11/04/19 11/17/18 08:00 metoprolol succinate 25 mg PO QAM 11/04/18 11/04/19 11/18/18 07:30 multivitamin 1 tab PO QAM 11/04/18 11/04/19 11/17/18 08:00 rosuvastatin 5 mg PO QAM 11/04/18 11/04/19 11/18/18 07:30 aspirin 81 mg PO QAM 11/04/19 11/04/19 Unknown clindamycin HCl 1 dose PO UD PRN 11/04/19 11/04/19 Unknown Past Medical History Medical History (Updated 11/10/19 @ 09:33 by Kush Richmond) AAA (abdominal aortic aneurysm) 3.1cm Atrial fibrillation Blood thinners D/C'd 08/26/19 by cardio due to fall risk outweighing afib burden. On ASA 81mg daily. 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 Peripheral neuropathy Posterior tibial tendonitis Sleep apnea H/o 2 sleep studies, used CPAP previously but discontinued use. Exercise / Class Metabolic Activity III < 4 Walking/Shop/Light housework (Denies CP or SOB with 1 FOS, limited by leg weakness and knee pain, uses cane) Past Surgical History Surgical History History of arthroscopic knee surgery ? right knee History of cardiac radiofrequency ablation 2/2 PSVT (2016) History of cataract surgery History of colonoscopy History of hemorrhoidectomy History of prostate biopsy History of tooth extraction History of total right knee replacement 11/2018 [facility] Status post placement of cardiac pacemaker 2016 Past Anesthesia History No Hx of Anesthesia Complications and No Family Hx of Anesthesia Complications History of PONV No Hx of PONV and Hx of Motion Sickness Social History Smoking Status: Never smoker Do You Dip or Chew Tobacco: No Hx Alcohol Use: Yes Alcohol type: wine alcohol intake frequency: a few times a week Hx Substance Use: No substance use type: does not use Review of Systems Pt denies any recent chest pain, shortness of breath, palpitations, fever, URI, or uncontrolled acid reflux. +occ sneezing and coughing for the past few years, "allergy symptoms" Physical Exam Vital Signs BP: 159/91 (pt reports this is elevated for him, usually 140s systolic) P: 63bpm SPO2: 95% RA T: 98.3 F R: 16 ENMT Mouth: + dental restorations (to have dental implants prior to surgery - instructed to make surgeon aware); no chipped teeth and no loose teeth Thyromental Distance: > or= 3.5 Finger Breadths (3.6) Mallampati Class: I Neck normal visual inspection; neck extension not limited Respiratory normal respiratory effort Auscultation: lungs clear to auscultation bilaterally Cardiovascular Rate/Rhythm: regular rate and regular rhythm Heart Sounds: no murmur Vessels: no carotid bruit Extremities: no edema Testing Laboratory Results 11/09/19 11:35 11/09/19 11:35 PT 10.7 Seconds (9.0-12.0) 11/09/19 11:35 INR 1.0 (0.9-1.1) 11/09/19 11:35 APTT 28.4 Seconds (21.0-31.0) 11/09/19 11:35 Blood Type AB Positive 11/09/19 11:35 Antibody Screen NEGATIVE 11/09/19 11:35 Electrocardiogram Date: 11/09/19 Atrial paced rhythm with prolonged AV conduction with occasional ventricular paced complexes. Nonspecific ST and T wave abnormality. Compared with EKG of 01/22/2017, electronic ventricular pacemaker has replaced electronic atrial pac emaker. Chest X-Ray Date: 05/26/19 IMPRESSION: 1. Improved parenchymal and/or pleural based nodularity with no significant res idual. 2. Mild atherosclerotic change thoracic aorta with no well-defined aneurysm. Other Testing Abdominal Arterial Study 05/26/19 A 3.1 cm infrarenal abdominal aortic aneurysm. Pacer Check 10/01/19 Indication: tachy-nader syndrome, PAT Implant date: 11/13/16 Presenting rhythm: atrial paced and RV sensed Pacing burden: 99.5% atrial, RV 3.6% Mode: AAIR <=> DDDR Summary: Normal dual chamber pacemaker function. Next Remote Monitoring Transmission is scheduled for 3 months. Lexiscan nuclear stress test report 08/2018: Lexiscan nuclear cardiac stress test negative for ischemia. Raw images show liver attenuation. Inferior perfusion defect consistent with soft tissue artifact. Gated SPECT images reveals normal myocardial thickening and wall motion. The LV ejection fraction is calculated at 55%. 2D echocardiogram report 09/2018: Sinus rhythm with frequent PVCs was present during the echocardiogram. The LV wall thickness is mildly increased (concentric). The left ventricular wall motion is normal. Mild aortic valve sclerosis is present. Aortic stenosis is absent. Mild mitral regurgitation is present. Mild tricuspid regurgitation is present. The estimated pulmonary artery systolic pressure is 38mm Hg (mildly elevated). 24 Hour Holter report 07/11/2014: 1. Duration - 24 hours 2. Quality - adequate 3. Dominant rhythm - Sinus rhythm 4. PACs - very frequent 5. PVCs - Frequent 6. Symptoms - patient symptoms correlated with supraventricular tachycardia as well as ventricular ectopy. Summary: The baseline rhythm was sinus rhythm/sinus bradycardia. Frequent supraventricular ectopy was present in the form of isolated PVCs, as well as episodes of paroxysmally supraventricular tachycardia, the longest SVT episode was 186 beats in duration with rate of 106 beats per minute. The fastest SVT episode was 35 beats in duration, with peak rate of 131 beats per minute. The longest RR interval was 2.1 seconds and can after a blocked premature atrial complex. Frequent ventricular ectopy was also present in the form of isolated premature ventricular complexes, couplets, and two triplets. Patient symptoms of palpitations correlated with the onset/offset of SVT as well as ventricular ectopy.
[2019-11-09 13:28] LABS: Basophils # (auto) 0.04 K/uL (0-0.2); Basophils % (auto) 0.6 %; Eosinophils % (auto) 2.8 %; Hematocrit (blood only) 43.3 % (42-52); Hemoglobin 14.5 g/dL (14.0-18.0); Lymphocytes % (auto) 13.8 %; Mean Corpuscular Hemoglobin 29.8 pg (25-34); Mean Corpuscular Hgb Conc 33.5 g/dL (32-36); Mean Corpuscular Volume 88.9 fL (80-100); Mean Platelet Volume 11.2 fL (7.4-10.4); Monocytes # (auto) 0.61 K/uL (0.11-0.59); Monocytes % (auto) 8.4 %; Neutrophils # (auto) 5.41 K/uL (1.4-6.5); Neutrophils % (auto) 74.4 %; Platelet Count 160 K/uL (130-400); RDW Coefficient of Variation 13.6 % (11.5-14.5); RDW Standard Deviation 44.4 fL (36.4-46.3); Red Blood Count 4.87 M/uL (4.7-6.1); White Blood Count 7.26 K/uL (4.8-10.8)
[2019-11-09 13:38] LABS: Partial Thromboplastin Time 28.4 Seconds (21.0-31.0); Prothrombin Time 10.7 Seconds (9.0-12.0)
[2019-11-09 14:06] LABS: BUN Creatinine Ratio 10.5 (10-20); C Reactive Protein 0.53 mg/dl (0-0.29); Calcium 9.1 mg/dl (8.5-10.1); Creatinine Clr Calc Pharmacy 47.1 ml/min; Est GFR (African American) 50.7; Est GFR (Non-African American) 43.8; Potassium 4.6 mmol/L (3.5-5.1)
--- NOTE | 2019-11-09 17:54 | Electrocardiogram Report ---
Test Reason : Blood Pressure : / mmHG Vent. Rate : 058 BPM Atrial Rate : 058 BPM P-R Int : 394 ms QRS Dur : 100 ms QT Int : 434 ms P-R-T Axes : 049 -20 -01 degrees QTc Int : 426 ms Atrial-paced rhythm with prolonged AV conduction with occasional ventricular-paced complexes Nonspecific ST and T wave abnormality Abnormal ECG When compared with ECG of 22-JAN-2017 13:54, Electronic ventricular pacemaker has replaced Electronic atrial pacemaker Confirmed by Romeo Mcintyre ([id number]) on 11/09/2019 5:54:13 PM Referred By: Mario Hayes Confirmed By:Rakan Mcintyre
--- NOTE | 2019-12-04 19:08 | History and Physical Report ---
DATE OF ADMISSION: 12/07/2019 CHIEF COMPLAINT: Left knee pain and discomfort. HISTORY OF PRESENT ILLNESS: The patient is an 89-year-old gentleman who is now about a year out from a right knee replacement. He now presents for surgical treatment of his left knee. He has a long history of knee problems that we treat him conservatively over the years. This has become less successful. He underwent a right knee replacement just about a year ago and has done well from this. He has struggled initially, but is now very happy with his knee and limited by left knee pain. He has to use a cane to assist in his walking. It hurts him all the time. The more he is up on it, the more it hurts and the more he limps. He would now like to have his knee fixed. Of note, since his last visit, he has been taken off his Coumadin for his AFib and just on metoprolol. PAST MEDICAL HISTORY: Significant for, 1. Atrial fibrillation, status post pacemaker placement and corrected arrhythmia. 2. Arthritis. 3. Low back pain/sciatica. 4. Mild obesity. 5. BPH. PAST SURGICAL HISTORY: Include, 1. Right knee replacement on 11/18/2018. 2. Pacemaker placement. 3. Heart ablation. 4. Herniorrhaphy. ALLERGIES: None. CURRENT MEDICATIONS: 1. Metoprolol once a day. 2. Crestor. 3. Multivitamin. SOCIAL HISTORY: He is an 89-year-old male. He is a retired professor. He is . Does not smoke. Seven drinks per week. FAMILY HISTORY: Noncontributory. REVIEW OF HISTORY: Negative for diabetes, neurologic problem, vascular problems, or bleeding disorders. Denies any chest pain or shortness of breath. No history of DVT or PE. Does have a history of atrial fibrillation, status post ablation, and now off his Coumadin. PHYSICAL EXAMINATION: GENERAL: Shows a pleasant, healthy, thin elderly male. He looks to be in pretty good health. HEENT: Benign. NECK: Supple, no lymphadenopathy. LUNGS: Clear to auscultation. HEART: Has a regular rate and rhythm. ABDOMEN: Soft, nontender, nondistended. EXTREMITIES: Grossly neurovascularly intact except as follows: Examination of both knees reveals the patient ambulates with the use of a cane. Examination of the right knee reveals a well-healed incision. Knee alignment looks anatomic. Range of motion is near full extension to 120 degrees of flexion. There is no instability. Examination of the left knee reveals varus alignment. He has got range of motion about 5-120. There is no instability. No pain with hip motion. He does have bony hypertrophy on the medial side of his knee with tenderness in that area. X-RAYS: X-rays of the left knee revealed advanced left knee DJD. He has got complete loss of his medial joint space. He has got subchondral sclerosis. The right knee replacement looks to be in good position. ASSESSMENT: An 89-year-old gentleman now a year out from a right knee replacement with advanced left knee degenerative joint disease. He has failed conservative treatment and would like to have his left knee replaced. He is happy with his right knee. PLAN: We are going to proceed with a left total knee replacement. The risks and benefits of left total knee replacement were explained to the patient including but not limited to DVT, PE, , infection, neurological injury, vascular injury, bleeding problem, pain, limited range of motion, stiffness, failure to relieve symptoms, incomplete relief of symptoms, need for further surgery in the future, fracture, leg length inequality, nerve palsy, etc. The patient understands and desires to proceed. Informed consent was obtained. As far as discharge plans, he lives at [facility] and they have a rehab unit there and he is planning on going there. We will use aspirin for DVT prophylaxis. He will return in 2 weeks postop.
[2019-12-07] MEDS ORDERED: METOCLOPRAMIDE HCL 10 MG TABLET PO SCH (06:00)
[2019-12-07] MEDS ORDERED: ACETAMINOPHEN 500 MG TAB PO SCH (06:00)
[2019-12-07] MEDS ORDERED: BUPIVACAINE LIPOSOME/PF 266 MG, BUPIVACAINE/EPINEPHRINE 50 ML, SODIUM CHLORIDE 0.9% 30 ... INFIL SCH (06:00)
[2019-12-07] MEDS ORDERED: LR 500ML BOLUS, THEN 15ML/HR IV SCH (06:00)
[2019-12-07] MEDS ORDERED: FAMOTIDINE 20 MG TAB PO SCH (06:00)
[2019-12-07] MEDS ORDERED: LR 60ML/HR IV SCH (06:00)
[2019-12-07] MEDS ORDERED: GABAPENTIN 300 MG CAP PO SCH (06:00)
[2019-12-07] MEDS ORDERED: TRANEXAMIC ACID 1,000 MG **IV Intra-op IV SCH (06:00)
[2019-12-07] MEDS ORDERED: CEFAZOLIN 2000MG 2,000 MG/15 ML SYR IV SCH (06:00)
[2019-12-07] MEDS ORDERED: ROPIVACAINE 0.5% 5 MG/ML 30 ML VIAL ONE (06:26)
[2019-12-07] MEDS ORDERED: EPINEPHrine INJ 1 MG/ML AMP ONE (06:27)
[2019-12-07] MEDS ORDERED: BUPIVACAINE 0.5 % 5 MG/1 ML PF 10ML VIAL ONE (06:28)
[2019-12-07] MEDS ORDERED: fentaNYL citrate 100 MCG/2 ML VIAL ONE (06:41)
[2019-12-07] MEDS ORDERED: MIDAZOLAM HCL 1 MG/ML 2ML VIAL ONE (06:41)
[2019-12-07] MEDS ORDERED: PROPOFOL IV EMULSION 10 MG/ML 20 ML VIAL IV ONE ×2 (06:41→07:53)
[2019-12-07] MEDS ORDERED: LIDOCAINE HCL 2% 2 ML VIAL/AMP(20MG/ML) INFIL ONE (06:43)
--- NOTE | 2019-12-07 06:46 | History & Physical Bridge Note ---
Date of Service December 07, 2019 History & Physical Bridge Note I have examined the patient, reviewed the History & Physical and in the interval since the performance of the History & Physical I have noted the following changes of clinical significance: no changes noted
[2019-12-07] MEDS ORDERED: BUPIVACAINE/EPINEPHRINE 0.25% 1:200,000 30 ML VIAL ONE (06:55)
[2019-12-07] MEDS ORDERED: BUPIVACAINE LIPOSOME 1.3% 266 MG/20 ML VIAL ONE (06:55)
[2019-12-07] MEDS ORDERED: BACITRACIN INJ 50,000 UNIT VIAL ONE (06:55)
[2019-12-07] MEDS ORDERED: SODIUM CHLORIDE 0.9% PF 50 ML VIAL ONE (06:55)
[2019-12-07] MEDS ORDERED: VANCOMYCIN HCL 1000MG/20ML VIAL ONE (07:13)
[2019-12-07] MEDS ORDERED: HYDROmorphone INJ 1 MG/ML SYRINGE IV PRN (07:22)
[2019-12-07] MEDS ORDERED: MEPERIDINE HCL 25 MG/ML CARP/VIAL IV PRN (07:22)
[2019-12-07] MEDS ORDERED: PHENYLEPHRINE 100MCG/ML 5ML SYR IV PRN (07:22)
[2019-12-07] MEDS ORDERED: ONDANSETRON INJ 2 MG/ML 2 ML VIAL IV PRN ×2 (07:22→10:15)
[2019-12-07] MEDS ORDERED: fentaNYL citrate 100 MCG/2 ML VIAL IV PRN (07:22)
[2019-12-07] MEDS ORDERED: ATROPINE SULFATE 0.1 MG/ML 10ML SYR IV PRN (07:22)
[2019-12-07] MEDS ORDERED: LABETALOL HCL IV 5 MG/ML 20ML IV PRN (07:22)
[2019-12-07] MEDS ORDERED: ePHEDrine sulfate 50 MG/ML AMP IV PRN (07:22)
[2019-12-07] MEDS ORDERED: KETAMINE HCL INJ 50 MG/ML 10 ML VIAL ONE (07:54)
--- NOTE | 2019-12-07 09:03 | Post Operative Brief Note ---
PG Immediate Post Op with CF Date of Surgery December 07, 2019 Pre & Post Diagnosis Operation Date: 12/07/19 07:15 Pre-Op Diagnosis: Left Knee degenerative joint disease Post-Op Diagnosis: Left Knee degenerative joint disease I identified the patient and participated in the time-out.: Yes Procedure Operation Date: 12/07/19 07:15 Actual Procedures p Left Total Knee Replacement(Left) - Mario Hayes MD Surgeon Mario Hayes MD Quality Assurance Technician Scottie, PAC Estimated Blood Loss 50 Findings Consistent with Post-Op Diagnosis Fluids 700 cc Specimens Specimen Description: Permanent A. Left knee bone and tissue Anesthesia Type Spinal MAC Complications none Disposition Accompanied Patient To Recovery: No Disposition: Recovery Room
--- NOTE | 2019-12-07 09:15 | Operative Report ---
Post Operative Report Pre & Post Diagnosis Operation Date: 12/07/19 07:15 Pre-Op Diagnosis: Left Knee degenerative joint disease Post-Op Diagnosis: Left Knee degenerative joint disease I identified the patient and participated in the time-out.: Yes Procedure Operation Date: 12/07/19 07:15 Actual Procedures p Left Total Knee Replacement(Left) - Mario Hayes MD Surgeon Mario Hayes MD Bioinformatics Computer Scientist Scottie, PAC Estimated Blood Loss 50 Findings Consistent with Post-Op Diagnosis Operative findings revealed advanced left knee DJD with extensive grade 4 [id number] disease and eburnation of the medial femoral condyle medial to plateau with osteophytes primarily in the medial compartment. He had a fixed varus deformity to his knee. A moderate to large knee joint effusion. That a 10 degree flexion contracture. Fluids 700 cc. Specimens Left knee sent for pathology. Drains None. 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 He has been through extensive conservative treatment which really became minimally effective over the past several years. He is continued be limited by his knee pain. He underwent a right knee replacement 1 year ago and is done well with this and elected proceed with left total knee arthroplasty. Description of Procedure Operative implants consist of: 1. Biomet Vanguard size 72.5 left posterior Bise femoral component. 2. Biomet size 79 tibial tray. 3. 10 mm posterior stabilized polyethylene insert. 4. 31 x 8 all poly-patella. The patient was taken to the operating identified and placed on the operating table supine position protectors were properly padded. IV antibiotics tried by anesthesia team. A spinal anesthetic and abductor canal block had provided in the holding area. Boyd catheter was placed in sterile fashion for the left IJ was then placed in the left lower extremity was then prepped and draped in usual sterile fashion. The left leg was elevated exsanguinated with use of an Esmarch and tourniquet placed at 3 mmHg. An anterior approach the left knee was then performed through a longitudinal incision centered over the patella. Sharp dissection was got through subcutaneous cyst down the extensor mechanism. A medial parapatellar arthrotomy incision was made. Some subperiosteal dissection was carried out medially. I did do an extensive medial and posterior medial release due to his flexion contracture and his varus deformity to his knee. Some osteophytes were taken off medial and posterior medially. The fat pad was resected from the patella tendon. Will opt out from the ligament was released. The patella was subluxated laterally and the knee was flexed. The osteophytes were taken off the distal femur. The ACL and PCL were then released from distal femur and the tibia subluxated anteriorly. The external tibial alignment jig was then placed the anterior face of the tibia and adjusted 16 mm medially. The proximal tibial cut was made essentially flush with the most deficient aspect of the medial tibial plateau defect. Some osteophytes taken off medial and posterior medially. Tibia sized to a size 79. Attention drawn the femur. The distal femur stem of the sharp drop with intramedullary canal was suction. I left a 6 degree valgus cutting guide was placed. This femoral cutting block was pinned in place. Distal femoral cut was made take an additional 3 mm of bone off distal femur. The femur was then sized to a size 72.5. The AP cutting block was pinned parallel to the epicondylar axis which was 5 degrees of external rotation. The anterior cut, anterior chamfer, posterior cut, posterior chamfer cuts were made. Box cutting guide was placed in a just slight lateral and the box cut was made. The knee was flexed. The remnants of the medial lateral menisci were excised. The osteophytes were taken off the posterior aspect of the femur. A trial femoral component was placed. The tibial tray was pinned in maximum external rotation and the drill and stem punch used to create defect in the proximal tibia for the tibial tray. Knee was then trialed and a 10 mm insert fit most probably. Attention drawn the patella. The patella was cleaned of all soft tissues. The patella thickness measured 24 mm in thickness was cut down to 14 but was sized to a size 31 patella. Local scheduled for 31 patella. The lateral osteophyte was moved. Patella button was placed. Knee was taken through range of motion and the patella tracked nicely with no thumbs test. Attention drawn to place and permanent components. All trial components were removed. A bone plug was placed in the distal femur limit blood loss. All batch [place] G cement was mixed. A Biomet Vanguard size 72.5 left Po stabilized femoral component, a size 79 tibial tray, a 10 mm posterior bite polyethylene insert, and a 31 x 8 all poly-patella were then cemented in place. Knee was brought out in full extension till cement hardened. Final cement check was then performed. The pericapsular tissues were injected with total of 100 cc of combination of 20 cc of Exparel, 30 cc of normal saline, 50 cc quarter percent Marcaine with epinephrine. Patient did receive 1 g of tranexamic acid. The joint was then let down for a final treatment time 63 minutes. Hemostasis ureters electrocautery. The wound was once again irrigated. The extensor mechanism closed with a combination of #1 PDS suture #1 Vicryl suture in [id number] fashion. Extensor mechanism was checked and found to be intact with subcutaneous tissues then closed with 2 Dexon suture in a buried interrupted fashion skin was closed skin palak. Leg was then cleaned dried and sterile dressing composed Xeroform, 4 fours, sterile cast padding, Roby bandage were applied. Patient then transferred to the recovery room in stable condition. Patient tolerated procedure well and there were no complications. Dedrick Rubin, my physician prosthetics assistant, was present for the entire procedure. His assistance was essential to a proper patient positioning, prepping and draping, surgical exposure, performing the technical details of the operation, placing the implants, closure of the wound, and placement of the sterile bandage. I attest to the content of the Intraoperative Record and any orders documented therein. Any exceptions are noted below.
--- NOTE | 2019-12-07 09:30 | XRay Report ---
XR knee LT 1 or 2V routine CLINICAL HISTORY: Surgical Post Op DEGENERATIVE ARTHRITIS COMPARISON: 07/22/2015 DISCUSSION: There are postsurgical changes of a total left knee arthroplasty and patellar resurfacing . The femoral tibial components appear well seated. There is gas present within the soft tissues cons istent with recent surgery. There are overlying skin palak. IMPRESSION: Postsurgical changes of a total left knee arthroplasty. ACT 112: Negative or not required by law. Electronically signed by: Daniel Estrada M.D. 12/07/2019 9:28 AM
--- NOTE | 2019-12-07 09:41 | Anesthesiology Progress Note ---
Date of Service December 07, 2019 Anesthesia Post Procedure Vital Signs Vital Signs: Temp Pulse Pulse Resp BP Pulse Ox 12/07/19 09:35 36.6 C 56 L 17 146/75 H 96 12/07/19 09:25 66 16 142/78 H 97 12/07/19 09:15 60 16 134/78 97 12/07/19 09:09 36.5 C 61 16 143/79 H 92 12/07/19 06:07 62 18 141/84 H 94 12/07/19 05:39 37.2 C 75 20 177/102 H 96 Transfer of Care Handoff Completed per policy Notes Mental Status: alert / awake / arousable Patient Amnestic to Procedure: Yes Nausea / Vomiting: adequately controlled Pain: adequately controlled Airway Patency, RR, SpO2: stable & adequate BP & HR: stable & adequate Hydration State: stable & adequate Neuraxial Anesthesia: was administered and sensory block is resolving Anesthetic Complications: no major complications apparent and Pt Satisfied with anesthetic care
[2019-12-07] MEDS ORDERED: TRAMADOL HCL 50 MG TABLET PO PRN (10:15)
[2019-12-07] MEDS ORDERED: HYDROmorphone INJ 0.5 MG/0.5 ML SYR IV PRN (10:15)
[2019-12-07] MEDS ORDERED: bisacodyL 10 MG SUPP PR PRN (10:15)
[2019-12-07] MEDS ORDERED: NALOXONE HCL 0.4 MG/1 ML VIAL/CARP IV PRN (10:15)
[2019-12-07] MEDS ORDERED: TAMSULOSIN HCL 0.4 MG CAP PO PRN (10:15)
[2019-12-07] MEDS ORDERED: ALUMINUM/MAGNESIUM SUSP 30 ML UDC PO PRN (10:15)
[2019-12-07] MEDS ORDERED: MAGNESIUM HYDROXIDE SUSP 30 ML UDC PO PRN (10:15)
[2019-12-07] MEDS ORDERED: METOCLOPRAMIDE HCL INJ 5 MG/ML 2 ML VIAL IV PRN (10:15)
[2019-12-07] MEDS: SODIUM CHLORIDE 0.9% 1000ML 1,000 ML IV SCH ×2 (12:08→21:33)
[2019-12-07] MEDS: KETOROLAC TROMETHAMINE 15 MG/ML VIAL IV SCH ×3 (12:08→23:55)
[2019-12-07] MEDS: ACETAMINOPHEN 500 MG TAB PO SCH ×2 (14:08→21:20)
[2019-12-07] MEDS ORDERED: TRANEXAMIC ACID / 0.7% NACL 1,000 MG/100 ML BAG IV SCH (15:00)
[2019-12-07] MEDS: CEFAZOLIN 2000MG 2,000 MG/15 ML SYR IV SCH ×2 (16:24→23:55)
[2019-12-07] MEDS: FERROUS GLUCONATE 324 MG TAB PO SCH (17:58)
[2019-12-07] MEDS: ASCORBIC ACID 500 MG TAB PO SCH (17:58)
[2019-12-07] MEDS ORDERED: SENNA 8.6 MG TAB PO SCH (21:00)
[2019-12-07] MEDS: DOCUSATE SODIUM 100 MG CAP PO SCH (21:20)
[2019-12-07] MEDS: ASPIRIN 81 MG ECTAB PO SCH (21:21)
[2019-12-08] MEDS: ACETAMINOPHEN 500 MG TAB PO SCH ×2 (05:52→13:47)
[2019-12-08] MEDS: KETOROLAC TROMETHAMINE 15 MG/ML VIAL IV SCH ×2 (05:52→11:47)
[2019-12-08 06:12] LABS: Hematocrit (blood only) 37.2 % (42-52); Hemoglobin 12.5 g/dL (14.0-18.0); Mean Corpuscular Hgb Conc 33.6 g/dL (32-36); Mean Corpuscular Volume 89.2 fL (80-100); Mean Platelet Volume 10.9 fL (7.4-10.4); Platelet Count 144 K/uL (130-400); RDW Coefficient of Variation 13.5 % (11.5-14.5); RDW Standard Deviation 44.4 fL (36.4-46.3); Red Blood Count 4.17 M/uL (4.7-6.1); White Blood Count 10.14 K/uL (4.8-10.8)
[2019-12-08 06:47] LABS: BUN Creatinine Ratio 13.2 (10-20); Creatinine Clr Calc Pharmacy 46.5 ml/min; Est GFR (African American) 50.8; Est GFR (Non-African American) 43.9; Potassium 4.2 mmol/L (3.5-5.1)
[2019-12-08] MEDS: ASCORBIC ACID 500 MG TAB PO SCH (08:01)
[2019-12-08] MEDS: ASPIRIN 81 MG ECTAB PO SCH (08:02)
[2019-12-08] MEDS: FERROUS GLUCONATE 324 MG TAB PO SCH (08:02)
[2019-12-08] MEDS: DOCUSATE SODIUM 100 MG CAP PO SCH (08:03)
[2019-12-08] MEDS ORDERED: MULTIVITAMIN TAB PO SCH ×2 (09:00)
[2019-12-08] MEDS ORDERED: CHOLECALCIFEROL 1,000 UNITS 25 MCG TAB PO SCH (09:00)
[2019-12-08] MEDS ORDERED: ROSUVASTATIN CALCIUM 5 MG TAB PO SCH (09:00)
[2019-12-08] MEDS ORDERED: METOPROLOL SUCC 25MG EXT REL TAB PO SCH (09:00)
--- NOTE | 2019-12-08 09:40 | Progress Notes ---
DATE: 12/08/2019 SUBJECTIVE: An 89-year-old male postoperative day 1 from left knee replacement. He is doing pretty well. Pain is controlled. Had a pretty good night. No chest pain or shortness of breath. Not feeling dizzy or lightheaded. OBJECTIVE: VITAL SIGNS: Temperature 37.2. Vital signs stable. GENERAL: Shows a pleasant elderly male. He is sitting up in his bedside chair, looks entirely comfortable. LUNGS: Clear to auscultation. HEART: Regular rate and rhythm. ABDOMEN: Soft, nontender, nondistended. EXTREMITIES: Grossly neurovascularly intact except as follows. Examination of the left leg reveals the dressing to be clean, dry, and intact. He can dorsiflex and plantarflex his foot appropriately. He is neurologically intact. He has got brisk refill. LABORATORY DATA: Hemoglobin 12.5. Hematocrit 37.2. Electrolytes are stable. ASSESSMENT: An 89-year-old gentleman postop day 1 from left knee replacement, doing reasonably well. Pain is controlled. He is neurologically intact. PLAN: 1. DVT prophylaxis including thigh-high TEDs, SCDs, and aspirin twice a day. 2. PT/OT. Weightbear as tolerated. Left total knee protocol. 3. Pain control, doing pretty well with current pain regimen. 4. Disposition. He is planning to be discharged back to [facility] to the rehab unit. We will see how therapy goes today. Possible discharge this afternoon.
--- NOTE | 2019-12-13 06:58 | Discharge Summary ---
Date of Service December 13, 2019 Admission HPI Per Admitting Provider Documented in the H & P Admission Exam (Per Admitting) Constitutional Documented in the H & P Discharge Data Consultations 12/07/19 10:15 Consult Case Management - Discharge Planning Routine Procedures Performed Operation Date: 12/07/19 07:15 Actual Procedures p Left Total Knee Replacement(Left) - Mario Hayes MD Hospital Course (1) Status post total left knee replacement: This patient is a 89 year old male admitted on 12/07/19 and underwent total knee replacement. He tolerated the procedure well and there were no complications. Transferred to the PACU post op and later to the orthopedic floor for further care. He was given ancef for antibiotic prophylaxis. He was also gi hunter EMIGDIO stockings, SCDs, and aspirin for DVT prophylaxis. Hemoglobin, hematocrit, and vital signs were monitored during his hospital stay and remained stable. Did not require any blood transfusions. There were no complications during his hospital stay. By post op day #1 the patient was tolerating a regular diet, pain was reasonably controlled with oral pain medicine, and he was participating in physical therapy. On post op day #1 the patient was discharged to group home facility. He was given printed discharge instructions including prescriptions for extra strength tylenol and aspirin. Continue physical therapy, weight bearing as tolerated. Continue EMIGDIO stockings. Follow up approximately 2 weeks post op or sooner if there are problems or concerns. Coding Level of Care Code None Diagnoses Status post total left knee replacement Z96.652
== END 2019-12-08 14:28 ==
LOC: ASU 05:12 → INTOOBSV 09:08 → 3E 09:08